=== PATIENT | female | born 1960 | race African-American/Black ===

== ENCOUNTER 2016-12-21 19:47 | Emergency (ER) | payer SELFPAY ==
[~2016-12-21] VITALS: Ht 177.8 cm; Wt 90.9 kg
[~2016-12-21 19:47] MED LIST: ALBU0.086 INH; ALBU1AER INH; ASPI81TA82 PO; CLIN75S PO; CLON0.5T PO; CYPR4TAB PO; FLUT1SPR9; FURO20 PO; IBUP800T23 PO; POTA10IN2 PO; PRED15SO7 PO; PRIN5TAB PO; ZITH250T PO
[2016-12-21 19:50] VITALS: BP 170/80; PULSE 75; RESP 16; TEMP 98.7; O2SAT 98
--- NOTE | 2016-12-21 20:55 | PD ---
HPI Chief Complaint: Medication Refill Request Time Seen by Provider: 20:47 Travel History International Travel<30 days: No Contact w/Intl Traveler<30days: No Traveled to known affect area: No History of Present Illness HPI This is a 56-year-old female who presents requesting a prescription for Klonopin. Per her efore records she was prescribed a 30 day supply of Klonopin 0.5 mg twice a day back in April 2016. She has been out of it ever since then and she presents today stating that she would like another prescription of this medication. She reports that it helped with anxiety and with sleeping issues. She does not currently have a primary care physician. She has no acute medical complaints at this time. History Past Medical Histgory Hx Cancer: No Social History Alcohol Use: No Tobacco Use: No Allergies-Medications (Allergen,Severity, Reaction): Coded Allergies: Codeine (Verified Allergy, Severe, ITCH, 12/21/16) Darvocet-N 100 (Verified Allergy, Severe, NAUSEA, 12/21/16) Penicillin (Verified Allergy, Severe, SWELLING, 12/21/16) Reported Meds & Prescriptions Reported Meds & Active Scripts Active Zithromax Z-Cole (Azithromycin) 250 Mg Tab 250 Mg PO DIRECTED 5 Days 500 MG (2 TABLETS) PO ON DAY 1, THEN 250 MG (1 TABLET) PO ON DAYS 2 TO 5. Proair Hfa (Albuterol Sulfate) 8.5 Gm Aero 2 Puff INH Q4-6H PRN * SHAKE WELL BEFORE USE * Flonase Allergy Relief (Fluticasone Propionate (Nasal)) 50 Mcg/Act Spr 2 [place] NA DAILY Orapred (Prednisolone) 15 Mg/5 Ml Syrp 20 Mg PO BID Cleocin Pediatric Granule (Clindamycin Palmitate HCl) 75 Mg/5 Ml Kristin 300 Mg PO Q6H 10 Days Potassium Chloride ER 10 meq (Potassium Chloride) 10 Meq Cap 1 Cap PO DAILY Cyproheptadine Hcl (Cyproheptadine HCl) 4 Mg Tab 4 Mg PO TID Prinivil (Lisinopril) 5 Mg Tab 5 Mg PO BID Clonazepam 0.5 Mg Tab 0.5 Mg PO BID PRN Ibuprofen 800 Mg Tab 800 Mg PO TID Lasix 20 Mg Tab (Furosemide) 20 Mg Tab 20 Mg PO BID Reported Aspir-81 (Aspirin) 81 Mg Tab 81 Mg PO DAILY Review of Systems General / Constitutional: Positive: Other (requesting refill) Psychiatric: Positive: Anxiety Physical Exam Narrative GENERAL: Well-developed well-nourished female in no acute distress SKIN: Warm and dry. CARDIOVASCULAR: Regular rate and rhythm. No murmur appreciated. RESPIRATORY: No accessory muscle use. Clear to auscultation. Breath sounds equal bilaterally. NEUROLOGICAL: Awake and alert. No obvious cranial nerve deficits. Motor grossly within normal limits. Normal speech. PSYCHIATRIC: Appropriate mood and affect; insight and judgment normal. Data Data Last Documented VS Vital Signs Date Time Temp Pulse Resp B/P Pulse Ox O2 Delivery O2 Flow Rate FiO2 12/21/16 19:50 98.7 75 16 170/80 98 MDM Medical Screen Exam Complete: Yes Emergency Medical Condition: No Narrative Course 56-year-old female presents requesting a prescription for Klonopin. She was prescribed Klonopin back in April 2016 and felt that it helped with anxiety and sleeping. She has no acute medical complaints at this time. I explained that this is a controlled substance and ideally she would have it prescribed by a primary care physician or psychiatrist that follows with her long-term given the risks of controlled medications. A medical screening exam was performed: At the time of evaluation the presenting medical condition was determined not to be of an emergent nature. The patient was given the option of receiving additional care, but declined. Patient was given options for additional community resources from which to obtain care. The Patient Has Been advised to seek medical attention for their presenting complaint. The patient has been advised to return to the ER at any time if an emergent condition develops. Primary Impression: Encounter for medical screening examination Fransico Gautam Dec 21, 2016 20:55
== END 2016-12-21 21:09 | disposition left against medical advice (07) ==
LOC: NEPK 19:47
DX: F41.9 Anxiety disorder, unspecified (principal); Z76.0 Encounter for issue of repeat prescription
CPT/HCPCS: 99281

== ENCOUNTER 2017-04-06 18:49 | Emergency (ER) | payer OTHER ==
[2017-04-06 18:51] VITALS: BP 170/76; PULSE 86; RESP 20; TEMP 99.6; O2SAT 99
[2017-04-06] MEDS ORDERED: DICL75TA PO (19:23)
[2017-04-06] MEDS ORDERED: CYCL1TAB29 PO (19:23)
[2017-04-06] MEDS ORDERED: FURO1TAB62 PO (19:26)
[2017-04-06] MEDS ORDERED: CLON0.5T PO (19:26)
[2017-04-06] MEDS ORDERED: ASPI81CH CHEW (19:26)
[2017-04-06] MEDS ORDERED: LISI-519 PO (19:26)
--- NOTE | 2017-04-06 19:27 | PD ---
HPI Chief Complaint: Injury Time Seen by Provider: 19:23 Travel History International Travel<30 days: No Contact w/Intl Traveler<30days: No Traveled to known affect area: No History of Present Illness HPI 56-year-old black female presents to emergency department with complains of pain in the posterior right leg 3 days. She states that she does not recall any injury. She does have a history of back problems in the past. She also states that she has high blood pressure and polycythemia. She denies any diabetes, heart disease or peripheral vascular disease. She does take aspirin daily. No other blood thinners. She denies any recent illness. Pain is worse with movement, bending and walking. Some relief with remaining still. Pain is moderate. Sharp and cramping at times. PFSH Past Medical History Narrative Medical Hypertension, polycythemia Heart Rhythm Problems: No Cancer: No Cardiac Catheterization: Yes Cardiomyopathy: No Cardiovascular Problems: Yes High Cholesterol: No Congestive Heart Failure: No Diabetes: No Diminished Hearing: No Endocrine: No Gastrointestinal Disorders: No Genitourinary: No Hepatitis: No Hiatal Hernia: No Heparin Induced Thrombocytopen: No Hypertension: Yes Immune Disorder: No Musculoskeletal: No Neurologic: Yes (NEUROPATHY) Psychiatric: No Reproductive: No Respiratory: Yes Immunizations Current: No Myocardial Infarction: No Seizures: No Thyroid Disease: No Ulcer: No Tetanus Vaccination: Unknown ?: Not : 3 Para: 1 Miscarriage: 2 Past Surgical History Narrative Surgical Hysterectomy AICD: No Coronary Artery Bypass Graft: No Gynecologic Surgery: Yes (hysterectomy) Hysterectomy: Yes Joint Replacement: No Pacemaker: No Other Surgery: Yes (HYSTERECTOMY) Family History Family Myocardial Infarction: No Social History Alcohol Use: No Tobacco Use: No Substance Use: No Allergies-Medications (Allergen,Severity, Reaction): Coded Allergies: Codeine (Verified Allergy, Severe, ITCH, 04/06/17) Darvocet-N 100 (Verified Allergy, Severe, NAUSEA, 04/06/17) Penicillin (Verified Allergy, Severe, SWELLING, 04/06/17) Reported Meds & Prescriptions Reported Meds & Active Scripts Active Zithromax Z-Cole (Azithromycin) 250 Mg Tab 250 Mg PO DIRECTED 5 Days 500 MG (2 TABLETS) PO ON DAY 1, THEN 250 MG (1 TABLET) PO ON DAYS 2 TO 5. Proair Hfa (Albuterol Sulfate) 8.5 Gm Aero 2 Puff INH Q4-6H PRN * SHAKE WELL BEFORE USE * Flonase Allergy Relief (Fluticasone Propionate (Nasal)) 50 Mcg/Act Spr 2 [place] NA DAILY Orapred (Prednisolone) 15 Mg/5 Ml Syrp 20 Mg PO BID Cleocin Pediatric Granule (Clindamycin Palmitate HCl) 75 Mg/5 Ml Kristin 300 Mg PO Q6H 10 Days Potassium Chloride ER 10 meq (Potassium Chloride) 10 Meq Cap 1 Cap PO DAILY Cyproheptadine Hcl (Cyproheptadine HCl) 4 Mg Tab 4 Mg PO TID Prinivil (Lisinopril) 5 Mg Tab 5 Mg PO BID Clonazepam 0.5 Mg Tab 0.5 Mg PO BID PRN Ibuprofen 800 Mg Tab 800 Mg PO TID Lasix 20 Mg Tab (Furosemide) 20 Mg Tab 20 Mg PO BID Reported Aspir-81 (Aspirin) 81 Mg Tab 81 Mg PO DAILY Review of Systems Except as stated in HPI: all other systems reviewed are Neg Physical Exam Narrative GENERAL: This is a well-nourished, well-developed patient, in no apparent distress. SKIN: No rashes, ecchymoses or lesions. Warm and dry. HEAD: Atraumatic. Normocephalic. EYES: PERRL, EOMI, no discharge or injection. No scleral icterus. EARS: Clear NOSE: Nasal turbinates appear normal. THROAT: Mucosa pink and moist. Airway patent. NECK: Trachea midline. supple, moves head freely. LUNGS: Clear to auscultation. CV: Regular in rhythm. ABDOMEN: Soft nontender. EXT: No clubbing cyanosis or edema. Patient has intact sensation with good distal pulses. There is no difference in temperature or color. Back: Patient has no central bony tenderness to palpation of the dorsal and lumbar spine. She does have some right buttocks and SI joint region tenderness. Positive straight leg raise on the right. She states that the pain does radiate from her buttocks down into the posterior thigh. There is no tenderness to palpation of the thigh itself when she standing upright. This is exacerbated as she bends forward to approximately 75. No gross spasm. She ambulates with a mildly antalgic gait. No saddle anesthesia. No focal weakness. Data Data Last Documented VS Vital Signs Date Time Temp Pulse Resp B/P Pulse Ox O2 Delivery O2 Flow Rate FiO2 04/06/17 18:51 99.6 86 20 170/76 99 Room Air MDM Medical Decision Making Medical Screen Exam Complete: Yes Emergency Medical Condition: Yes Medical Record Reviewed: Yes Differential Diagnosis MDM: High Differential diagnoses: AAA,Fracture, sprain, strain, HNP, nerve or vascular injury, epidural abscess, pilonidal cyst, pyelonephritis, UTI, nephrolithiasis, ureterolithiasis Narrative Course This is lumbar radiculopathy Diagnosis Primary Impression: Lumbar radiculopathy, acute Patient Instructions: General Instructions Additional Instructions: Rest. Ice for the next 3 days followed by heat . Flexeril and Voltaren. Follow-up with a primary care doctor in one week. Return to the ER for emergencies. Med/Other Pt SpecificInfo: Prescription(s) given Scripts Cyclobenzaprine (Flexeril)10 Mg Tab10 Mg PO TID #30 TAB Prov:Yunier Meraz MD 04/06/[address] 75 Mg Tabdr75 Mg PO BID #20 TAB Prov:Yunier Meraz MD 04/06/17 Disposition: 01 DISCHARGE HOME Condition: Stable Chris Tinoco Apr 06, 2017 19:27
== END 2017-04-06 19:59 | disposition home or self-care (01) ==
LOC: NEPK 18:49
DX: M54.16 Radiculopathy, lumbar region (principal)
CPT/HCPCS: 99284

== ENCOUNTER 2017-06-12 19:04 | Emergency (ER) | payer OTHER ==
[~2017-06-12 19:04] MED LIST changes: -ALBU1AER INH; +ASPI81CH CHEW; -ASPI81TA82 PO; -CLIN75S PO; -CYPR4TAB PO; -FLUT1SPR9; +FURO1TAB62 PO; -FURO20 PO; -IBUP800T23 PO; +LISI-519 PO; -POTA10IN2 PO; -PRED15SO7 PO; -PRIN5TAB PO; -ZITH250T PO
[2017-06-12 19:05] VITALS: BP 176/87; PULSE 78; RESP 16; TEMP 98.7; O2SAT 96
--- NOTE | 2017-06-12 19:43 | PD ---
HPI Chief Complaint: R ear clicking Time Seen by Provider: 19:39 Travel History International Travel<30 days: No Contact w/Intl Traveler<30days: No Traveled to known affect area: No History of Present Illness HPI 56-year-old female presents to emergency department for evaluation of clicking in her right ear for the last week. Patient feels as though something is in her ear. Denies pain. Denies any alterations in hearing. No drainage. No fever chills. No other symptoms report. PFSH Past Medical History Heart Rhythm Problems: No Cancer: No Cardiac Catheterization: Yes Cardiomyopathy: No Cardiovascular Problems: Yes High Cholesterol: No Congestive Heart Failure: No Diabetes: No Diminished Hearing: No Endocrine: No Gastrointestinal Disorders: No Genitourinary: No Hepatitis: No Hiatal Hernia: No Heparin Induced Thrombocytopen: No Hypertension: Yes Immune Disorder: No Musculoskeletal: No Neurologic: Yes (NEUROPATHY) Psychiatric: No Reproductive: No Respiratory: Yes Immunizations Current: No Myocardial Infarction: No Seizures: No Thyroid Disease: No Ulcer: No : 3 Para: 1 Miscarriage: 2 Past Surgical History AICD: No Coronary Artery Bypass Graft: No Gynecologic Surgery: Yes (hysterectomy) Hysterectomy: Yes Joint Replacement: No Pacemaker: No Other Surgery: Yes (HYSTERECTOMY) Social History Alcohol Use: No Tobacco Use: No Substance Use: No Allergies-Medications (Allergen,Severity, Reaction): Coded Allergies: acetaminophen (Unverified Allergy, Severe, NAUSEA, 04/20/17) codeine (Unverified Allergy, Severe, ITCH, 04/20/17) penicillin G (Unverified Allergy, Severe, SWELLING, 04/20/17) propoxyphene (Unverified Allergy, Severe, NAUSEA, 04/20/17) Reported Meds & Prescriptions Reported Meds & Active Scripts Active Cipro Hc Otic Drops (Ciprofloxacin/Hydrocortisone) 0.2-1% Susp 3 Drop RIGHT EAR BID Reported Clonazepam 0.5 Mg Tab 0.5 Mg PO BID Lasix (Furosemide) 20 Mg Tab 20 Mg PO BID Lisinopril 5 Mg Tab 5 Mg PO BID Aspirin 81 Mg Chew 81 Mg CHEW DAILY Review of Systems Except as stated in HPI: all other systems reviewed are Neg Physical Exam Narrative GENERAL: Well-nourished, well-developed female patient, in no acute distress SKIN: Focused skin assessment warm/dry. HEAD: Normocephalic. No mastoid tenderness EARS: Bilateral pinnae and external canals appear within normal limits. The remaining impaction of the right urinary unable to visualize tympanic membrane. After cerumen is removed, the tympanic membrane is within normal limits however the canal is erythematous. Bilateral tympanic membranes without erythema, dullness or perforation. EYES: No scleral icterus. No injection or drainage. NECK: Supple, trachea midline. No JVD or lymphadenopathy. CARDIOVASCULAR: Regular rate and rhythm without murmurs, gallops, or rubs. RESPIRATORY: Breath sounds equal bilaterally. No accessory muscle use. Data Data Last Documented VS Vital Signs Date Time Temp Pulse Resp B/P (MAP) Pulse Ox O2 Delivery O2 Flow Rate FiO2 06/12/17 19:05 98.7 78 16 176/87 (116) 96 Room Air MDM Medical Decision Making Medical Screen Exam Complete: Yes Emergency Medical Condition: Yes Medical Record Reviewed: Yes Differential Diagnosis Foreign body versus allergies versus otitis media versus otitis externa Narrative Course 56-year-old female presents to department for evaluation of clicking in her right ear. Patient appears without distress. Cerumen is impeding my visualization of the right tympanic membrane. After this was removed, the external canal of the right ear is erythematous. The membrane is intact and without effusion. Patient was started on Ciprodex otic drops. She has no phone care and agrees to return immediately with any acute worsening of symptoms. Procedures Procedure Narrative Verbal consent was obtained prior to procedure Normal saline is used to irrigate the right ear through a #20-gauge catheter. Light brown and dark brown wax is noted in chunks. Patient tolerated this well. Diagnosis Primary Impression: Right ear impacted cerumen Additional Impression: Otitis externa of right ear Qualified Codes: H60.501 - Unspecified acute noninfective otitis externa, right ear Referrals: Ear / Nose / Throat Specialist Primary Care Physician Patient Instructions: Cerumen Impaction (ED), General Instructions Additional Instructions: Avoid Q-tip use Follow-up with a primary care provider Seek ear nose and throat evaluation if symptoms persist Return immediately with any acute worsening of symptoms Med/Other Pt SpecificInfo: Prescription(s) given Scripts Ciprofloxacin-Hydrocortisone Otic Drops (Cipro Hc Otic Drops) 0.2-1% Susp 3 DROP RIGHT EAR BID for Infection, #1 BOTTLE 0 Refills Prov: Mirela Verdugo 06/12/17 Disposition: 01 DISCHARGE HOME Condition: Stable Mirela Verdugo Jun 12, 2017 19:43
[2017-06-12] MEDS ORDERED: CIPRHC10A RIGHT EAR (20:18)
== END 2017-06-12 20:34 | disposition home or self-care (01) ==
LOC: NEPD 19:04
DX: H61.21 Impacted cerumen, right ear (principal); H60.501 Unspecified acute noninfective otitis externa, right ear
CPT/HCPCS: 99283

== ENCOUNTER 2017-07-13 14:18 | Emergency (ER) | payer OTHER ==
[~2017-07-13 14:18] MED LIST changes: +ASPI-516 CHEW; -ASPI81CH CHEW; +CIPRHC10A RIGHT EAR
[2017-07-13 14:23] VITALS: BP 110/59; PULSE 122; RESP 22; TEMP 98.5; O2SAT 98
[2017-07-13] MEDS ORDERED: ASPIRIN 81 MG CHEW TAB CHEW ONE (14:45)
[2017-07-13] MEDS ORDERED: SODIUM CHLORIDE 0.9% FLUSH 10 ML FLUSH IVF PRN (14:45)
[2017-07-13 15:30] VITALS: O2SAT 98
--- NOTE | 2017-07-13 15:52 | PD ---
HPI Chief Complaint: Chest Pain Time Seen by Provider: 15:23 Travel History International Travel<30 days: No Contact w/Intl Traveler<30days: No Traveled to known affect area: No History of Present Illness HPI 56-year-old female with a history of anemia that presents to the ED for evaluation of chest pressure after having her first hour infusion. 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 She states that she was fine when she went to eat and when she was at the restaurant she felt a pressure on her chest which shortness of breath. She's never had this symptoms before and states that she has not had a stress test in some years and she has no history of heart disease or ACS in herself or her family. She does have a history of hypertension. She denies smoking. She denies taking any estrogen products of any recent travel. No trauma. Per patient the pain is more like a pressure and is 6 out of 10. Nothing makes it better or worse. She denies any history of heart failure. She denies any abdominal pain. No nausea or vomiting. No bowel movement or urinary issues. Per patient she has no blood in her stool. Pain does not radiate. PFSH Past Medical History Heart Rhythm Problems: No Cancer: No Cardiac Catheterization: Yes Cardiomyopathy: No Cardiovascular Problems: Yes High Cholesterol: No Congestive Heart Failure: No Diabetes: No Diminished Hearing: No Endocrine: No Gastrointestinal Disorders: No Genitourinary: No Hepatitis: No Hiatal Hernia: No Heparin Induced Thrombocytopen: No Hypertension: Yes Immune Disorder: No Musculoskeletal: No Neurologic: Yes (NEUROPATHY) Psychiatric: No Reproductive: No Respiratory: Yes Immunizations Current: No Myocardial Infarction: No Seizures: No Thyroid Disease: No Ulcer: No : 3 Para: 1 Miscarriage: 2 Past Surgical History AICD: No Coronary Artery Bypass Graft: No Gynecologic Surgery: Yes (hysterectomy) Hysterectomy: Yes Joint Replacement: No Pacemaker: No Other Surgery: Yes (HYSTERECTOMY) Social History Alcohol Use: No Tobacco Use: No Substance Use: No Allergies-Medications (Allergen,Severity, Reaction): Coded Allergies: acetaminophen (Verified Allergy, Severe, NAUSEA, 07/13/17) codeine (Verified Allergy, Severe, ITCH, 07/13/17) penicillin G (Verified Allergy, Severe, SWELLING, 07/13/17) propoxyphene (Verified Allergy, Severe, NAUSEA, 07/13/17) Reported Meds & Prescriptions Reported Meds & Active Scripts Active Reported Clonazepam 0.5 Mg Tab 0.5 Mg PO BID Lasix (Furosemide) 20 Mg Tab 20 Mg PO BID Lisinopril 5 Mg Tab 5 Mg PO BID Aspirin 81 Mg Chew 81 Mg CHEW DAILY Review of Systems Except as stated in HPI: all other systems reviewed are Neg Physical Exam Narrative GENERAL: SKIN: Warm and dry. HEAD: Atraumatic. Normocephalic. EYES: Pupils equal and round. No scleral icterus. No injection or drainage. ENT: No nasal bleeding or discharge. Mucous membranes pink and moist. Tongue is midline. No uvula deviation. NECK: Trachea midline. No JVD. CARDIOVASCULAR: Regular rate and rhythm. No murmurs, S3, S4. RESPIRATORY: No accessory muscle use. Clear to auscultation. Breath sounds equal bilaterally. GASTROINTESTINAL: Abdomen soft, non-tender, nondistended. Hepatic and splenic margins not palpable. MUSCULOSKELETAL: Extremities without clubbing, cyanosis, or edema. No obvious deformities. Full range of motion of the upper and lower extremities bilaterally. 2+ pulses bilaterally. NEUROLOGICAL: Awake and alert. No obvious cranial nerve deficits. Motor grossly within normal limits. Five out of 5 muscle strength in the arms and legs. Normal speech. PSYCHIATRIC: Appropriate mood and affect; insight and judgment normal. Data Data Last Documented VS Vital Signs Date Time Temp Pulse Resp B/P (MAP) Pulse Ox O2 Delivery O2 Flow Rate FiO2 07/13/17 18:00 80 16 117/68 (84) 99 Nasal Cannula 2.00 07/13/17 14:23 98.5 Orders Orders Basic Metabolic Panel (Bmp) (07/13/17 14:33) B-Type Natriuretic Peptide (07/13/17 14:33) Ckmb (Isoenzyme) Profile (07/13/17 14:33) Complete Blood Count With Diff (07/13/17 14:33) Magnesium (Mg) (07/13/17 14:33) Prothrombin Time / Inr (Pt) (07/13/17 14:33) Act Partial Throm Time (Ptt) (07/13/17 14:33) Troponin I (07/13/17 14:33) Lipase (07/13/17 14:33) Chest, Single Ap (07/13/17 14:33) Ecg Monitoring (07/13/17 14:33) Bilateral Bp Monitoring (07/13/17 14:33) Iv Access Insert/Monitor (07/13/17 14:33) Oximetry (07/13/17 14:33) Oxygen Administration (07/13/17 14:33) Sodium Chloride 0.9% Flush (Ns Flush) (07/13/17 14:45) Aspirin Chew (Aspirin Chew) (07/13/17 14:45) Nitroglycerin Sl (Nitrostat Sl) (07/13/17 16:00) D-Dimer (07/13/17 15:45) CKMB (07/13/17 15:45) CKMB% (07/13/17 15:45) Ct Pulmonary Angiogram (07/13/17 ) Iohexol 350 Inj (Omnipaque 350 Inj) (07/13/17 18:30) Ed Discharge Order (07/13/17 18:47) Labs Laboratory Tests Test 07/13/17 15:45 White Blood Count 6.2 TH/MM3 Red Blood Count 7.83 MIL/MM3 Hemoglobin 17.5 GM/DL Hematocrit 57.3 % Mean Corpuscular Volume 73.2 FL Mean Corpuscular Hemoglobin 22.3 PG Mean Corpuscular Hemoglobin Concent 30.5 % Red Cell Distribution Width 20.2 % Platelet Count 300 TH/MM3 Mean Platelet Volume 9.3 FL Neutrophils (%) (Auto) 86.1 % Lymphocytes (%) (Auto) 11.3 % Monocytes (%) (Auto) 1.2 % Eosinophils (%) (Auto) 0.9 % Basophils (%) (Auto) 0.5 % Neutrophils # (Auto) 5.3 TH/MM3 Lymphocytes # (Auto) 0.7 TH/MM3 Monocytes # (Auto) 0.1 TH/MM3 Eosinophils # (Auto) 0.1 TH/MM3 Basophils # (Auto) 0.0 TH/MM3 CBC Comment DIFF FINAL Differential Comment Prothrombin Time 11.5 SEC Prothromb Time International Ratio 1.0 RATIO Activated Partial Thromboplast Time 25.4 SEC D-Dimer Quantitative (PE/DVT) 8.48 MG/L FEU Blood Urea Nitrogen 15 MG/DL Creatinine 0.93 MG/DL Random Glucose 116 MG/DL Calcium Level 9.0 MG/DL Magnesium Level 1.8 MG/DL Sodium Level 139 MEQ/L Potassium Level 3.7 MEQ/L Chloride Level 101 MEQ/L Carbon Dioxide Level 29.7 MEQ/L Anion Gap 8 MEQ/L Estimat Glomerular Filtration Rate 76 ML/MIN Total Creatine Kinase 175 U/L Creatine Kinase MB 2.5 NG/ML Troponin I LESS THAN 0.02 NG/ML B-Type Natriuretic Peptide 24 PG/ML Lipase 143 U/L MDM Medical Decision Making Medical Screen Exam Complete: Yes Emergency Medical Condition: Yes Medical Record Reviewed: Yes Interpretation(s) CBC & BMP Diagram 07/13/17 15:45 Calcium Level 9.0, Magnesium Level 1.8 EKG shows sinus rhythm with no sign of acute ischemia or arrhythmia read by me and attending. Troponin and CK-MB negative. D-dimer of 8 Last Impressions Chest X-Ray 07/13/17 1433 Signed Impressions: Service Date/Time: Thursday, July 13, 2017 15:51 - CONCLUSION: No acute cardiopulmonary abnormality is identified. Efra Granger MD CT pulm shows no PE but enlarged axillary lymph nodes, radiologist recommends 3 month follow up. Differential Diagnosis ACS versus PE versus symptomatic anemia versus CHF versus a typical chest pain versus tachycardia versus chest pain Narrative Course 56-year-old female that presents to the ED for evaluation of chest pain. Patient was properly examined and was found to have signs and symptoms of unclear etiology at this time. There is some concern for PE as well as ACS as patient does have risk factors for both. She is tachycardic. Labs and imaging were ordered. She was not given aspirin as she rated an aspirin today. She was given 1 nitroglycerin. Labs and imaging showed elevated d-dimer of 8. CT pulmonary Was done was negative for PE. CT did show lymphadenopathy. Patient was told this was also need to follow-up outpatient in [address] Gautam recommends discharge. She discussed this with the patient who is in agreement with plan. Patient was told to have the lymph nodes evaluated by PCP and likely CT in 3 months for recheck. See ED worsening symptoms. Follow with PCP. Diagnosis Primary Impression: Atypical chest pain Additional Impression: Lymphadenopathy Patient Instructions: General Instructions Additional Instructions: Follow with PCP. See ED worsening symptoms. Your CT showed abnormal lymph nodes under her axilla to need to be reevaluated by her primary care doctor as well as possible have a CT to reevaluate in 3 months. Med/Other Pt SpecificInfo: Prescription(s) given Disposition: 01 DISCHARGE HOME Condition: Stable Ken Bansal Jul 13, 2017 15:52
[2017-07-13 16:00] LABS: AUTOMATED NEUTROPHIL # 5.3 TH/MM3 (1.8-7.7); BASOPHIL % 0.5 % (0.0-2.0); EOSINOPHIL # 0.1 TH/MM3 (0-0.4); EOSINOPHIL % 0.9 % (0.0-4.0); HEMATOCRIT 57.3 % (35.0-46.0); HEMO FLAGS DIFF FINAL; LYMPH % 11.3 % (9.0-44.0); LYMPHOCYTE # 0.7 TH/MM3 (1.0-4.8); MEAN CELL VOLUME 73.2 FL (80.0-100.0); MEAN CORPUSCULAR HEMOGLOBIN 22.3 PG (27.0-34.0); MEAN CORPUSCULAR HGB CONC 30.5 % (32.0-36.0); MONO % 1.2 % (0.0-8.0); NEUT % 86.1 % (16.0-70.0); PLATELET COUNT 300 TH/MM3 (150-450); RED BLOOD COUNT 7.83 MIL/MM3 (4.00-5.30); RED CELL DISTRIBUTION WIDTH 20.2 % (11.6-17.2); WHITE BLOOD COUNT 6.2 TH/MM3 (4.0-11.0)
[2017-07-13] MEDS ORDERED: NITROGLYCERIN 0.4 MG SL 25 TABS/BTL SL ONE (16:00)
[2017-07-13 16:21] LABS: ANION GAP 8 MEQ/L (5-15); BICARBONATE 29.7 MEQ/L (21.0-32.0); BLOOD UREA NITROGEN 15 MG/DL (7-18); CHLORIDE 101 MEQ/L (98-107); GLOMERULAR FILTRATION RATE 76 ML/MIN (>89); MAGNESIUM 1.8 MG/DL (1.5-2.5); POTASSIUM 3.7 MEQ/L (3.5-5.1); SODIUM (NA) 139 MEQ/L (136-145)
[2017-07-13 16:24] LABS: CREATINE KINASE 175 U/L (26-192)
[2017-07-13 16:29] LABS: APTT (PATIENT) 25.4 SEC (24.3-30.1); PROTHROMBIN TIME - PATIENT 11.5 SEC (9.8-11.6)
[2017-07-13 16:36] LABS: CKMB 2.5 NG/ML (0.5-3.6)
--- NOTE | 2017-07-13 16:39 | RADRPT ---
EXAM DATE/TIME: 07/13/2017 15:51 [facility] COMPARISON: CHEST SINGLE AP, June 03, 2016, 21:04. INDICATIONS : Chest tightness, short of breath. MEDICAL HISTORY : Cardiovascular disease. Hypertension SURGICAL HISTORY : Hysterectomy. ENCOUNTER: Initial ACUITY: 1 day PAIN SCORE: 0/10 LOCATION: Bilateral chest FINDINGS: Portable AP view of the chest demonstrates a normal-sized cardiac silhouette. No effusion, consolidat ion, or pneumothorax is visualized. The bones and soft tissues demonstrate no acute abnormality. EKG lines overlie the patient. CONCLUSION: No acute cardiopulmonary abnormality is identified. Efra Granger MD on July 13, 2017 at 16:37 Board Certified Radiologist. This report was verified electronically.
[2017-07-13 16:57] VITALS: BP_SYST 122; BP_SYST 126; BP_DIAS 72; BP_DIAS 74
[2017-07-13 18:00] VITALS: BP 117/68; PULSE 80; RESP 16; O2SAT 99
[2017-07-13] MEDS ORDERED: IOHEXOL 350 MG/ML 10 ML VIAL (for RAD DIAG) IVCONTRAST ONE (18:30)
--- NOTE | 2017-07-13 18:44 | RADRPT ---
EXAM DATE/TIME: 07/13/2017 18:20 [facility] COMPARISON: CT PULMONARY ANGIOGRAM, February 24, 2016, 11:18. INDICATIONS : Chest pain and diaphoretic. IV CONTRAST: 70 cc Omnipaque 350 (iohexol) IV RADIATION DOSE: 23.36 CTDIvol (mGy) MEDICAL HISTORY : Hypertension. Cardiovascular disease SURGICAL HISTORY : Hysterectomy. ENCOUNTER: Initial ACUITY: 1 day PAIN SCALE: 5/10 LOCATION: chest TECHNIQUE: Volumetric scanning of the chest was performed using a pulmonary embolism protocol MIP images were re constructed. Using automated exposure control and adjustment of the mA and/or kV according to patien t size, radiation dose was kept as low as reasonably achievable to obtain optimal diagnostic quality images. DICOM format image data is available electronically for review and comparison. Follow-up recommendations for detected pulmonary nodules are based at a minimum on nodule size and pa tient risk factors according to Fleischner Society Guidelines. FINDINGS: PULMONARY ARTERIES: No filling defects are seen in the pulmonary arteries through the segmental level. LUNGS: There is some atelectasis or scarring in the right base. Lung bases are otherwise clear. PLEURAE: There is no pleural thickening or pleural effusion. MEDIASTINUM: There is good visualization of the great vessels of the middle mediastinum. No evidence of mediastin al or hilar adenopathy/mass. MUSCULOSKELETAL: Within normal limits for patient age. MISCELLANEOUS: The visualized upper abdominal organs demonstrate no acute abnormality. There are some nonspecific bu t prominent lymph nodes identified in the axilla bilaterally. Largest on the left measures 1.5 and on the right 2.1 cm in diameter. These are definitely more prominent when compared to the prior exam bu t appear to be isolated CONCLUSION: 1. Atelectasis or scarring in the right base. No confluent infiltrate. 2. No pulmonary embolus. 3. Prominent lymph nodes in both axilla as above. These appear to be isolated to the axillary region and the largest lymph nodes still appear to have a fatty emeka and therefore are likely reactive. Shayne mmend followup CT scan of the chest in 3 months to ensure stability, however. Evna Jackson MD on July 13, 2017 at 18:36 Board Certified Radiologist. This report was verified electronically.
== END 2017-07-13 19:56 | disposition home or self-care (01) ==
LOC: NEPC 14:18
DX: R07.89 Other chest pain (principal); R59.1 Generalized enlarged lymph nodes; D64.9 Anemia, unspecified; I10 Essential (primary) hypertension; G62.9 Polyneuropathy, unspecified
CPT/HCPCS: 71010; 71275; 80048; 82550; 82552; 83690; 83735; 83880; 84484; 85025; 85379; 85610; 85730; 99285; Q9967

== ENCOUNTER 2018-01-24 14:52 | Observation (INO) | payer OTHER ==
[2018-01-24] VITALS (7 sets, daily range): BP systolic 143–153; BP diastolic 70–81; PULSE 82–100; RESP 16–20; TEMP 98.4–100; O2SAT 96–100
[~2018-01-24] VITALS: Ht 177.8 cm; Wt 90.0 kg
[~2018-01-24 14:52] MED LIST changes: -CIPRHC10A RIGHT EAR
[2018-01-24] MEDS ORDERED: SODIUM CHLORIDE 0.9% FLUSH 10 ML FLUSH IVF PRN (15:45)
--- NOTE | 2018-01-24 15:48 | PD ---
HPI Chief Complaint: Chest Pain Time Seen by Provider: 15:20 Travel History International Travel<30 days: No Contact w/Intl Traveler<30days: No Traveled to known affect area: No History of Present Illness HPI The patient was seen and examined in the presence of the nurse. This patient complains of chest pain. Duration 3 hours. Severity is moderate. Location is center sternum. It feels like a pressure. No history of cardiac disease. No alleviating factors. No exacerbating factors. She is not short of breath or having cough or heartburn or fever. She does have hypertension PFSH Past Medical History Heart Rhythm Problems: No Cancer: No Cardiac Catheterization: Yes Cardiomyopathy: No Cardiovascular Problems: Yes High Cholesterol: No Congestive Heart Failure: No Diabetes: No Diminished Hearing: No Endocrine: No Gastrointestinal Disorders: No Genitourinary: No Hepatitis: No Hiatal Hernia: No Heparin Induced Thrombocytopen: No Hypertension: Yes Immune Disorder: No Musculoskeletal: No Neurologic: Yes (NEUROPATHY) Psychiatric: No Reproductive: No Respiratory: Yes Immunizations Current: Yes Myocardial Infarction: No Seizures: No Thyroid Disease: No Ulcer: No Menopausal: Yes : 3 Para: 1 Miscarriage: 2 Past Surgical History AICD: No Coronary Artery Bypass Graft: No Gynecologic Surgery: Yes (hysterectomy) Hysterectomy: Yes Joint Replacement: No Pacemaker: No Other Surgery: Yes (HYSTERECTOMY) Social History Alcohol Use: No Tobacco Use: No Substance Use: No Allergies-Medications (Allergen,Severity, Reaction): Coded Allergies: acetaminophen (Verified Allergy, Severe, NAUSEA, 07/13/17) codeine (Verified Allergy, Severe, ITCH, 07/13/17) penicillin G (Verified Allergy, Severe, SWELLING, 07/13/17) propoxyphene (Verified Allergy, Severe, NAUSEA, 07/13/17) Reported Meds & Prescriptions Reported Meds & Active Scripts Active Reported Hydrochlorothiazide 25 Mg Tab 25 Mg PO DAILY Gabapentin 300 Mg Cap 300 Mg PO TID Amlodipine (Amlodipine Besylate) 5 Mg Tab 5 Mg PO DAILY Ferrous Sulfate 325 Mg (65 Mg Iron) Tablet 325 Mg PO DAILY Hydrea (Hydroxyurea) 500 Mg Cap 500 Mg PO DAILY Clonazepam 0.5 Mg Tab 0.5 Mg PO BID Lisinopril 5 Mg Tab 5 Mg PO BID Aspirin 81 Mg Chew 81 Mg CHEW DAILY Review of Systems General / Constitutional: No: Fever Eyes: No: Visual changes HENT: No: Headaches Cardiovascular: Positive: Chest Pain or Discomfort Respiratory: No: Shortness of Breath Gastrointestinal: No: Abdominal Pain Genitourinary: No: Dysuria Musculoskeletal: No: Pain Skin: No Rash Neurologic: No: Weakness Psychiatric: No: Depression Endocrine: No: Polydipsia Hematologic/Lymphatic: No: Easy Bruising Physical Exam Narrative GENERAL: Well-nourished, well-developed patient in no apparent distress. SKIN: Focused skin assessment reveals no rash and nodules. Skin is Warm and dry. HEAD: Atraumatic. Normocephalic. EYES: Pupils equal and round. No scleral icterus. No injection or drainage. ENT: No nasal bleeding or discharge. Mucous membranes pink and moist. NECK: Trachea midline. No JVD. CARDIOVASCULAR: Regular rate and rhythm. No murmur appreciated. RESPIRATORY: No accessory muscle use. Clear to auscultation. Breath sounds equal bilaterally. GASTROINTESTINAL: Abdomen soft, non-tender, nondistended. Hepatic and splenic margins not palpable. MUSCULOSKELETAL: No obvious deformities. No clubbing. No cyanosis. No edema. NEUROLOGICAL: Awake and alert. No obvious cranial nerve deficits. Motor grossly within normal limits. Normal speech. PSYCHIATRIC: Appropriate mood and affect; insight and judgment normal. Data Data Last Documented VS Vital Signs Date Time Temp Pulse Resp B/P (MAP) Pulse Ox O2 Delivery O2 Flow Rate FiO2 01/24/18 17:07 95 18 152/72 (98) 98 Room Air 01/24/18 15:05 100.0 Orders Orders Electrocardiogram (01/24/18 ) Basic Metabolic Panel (Bmp) (01/24/18 15:32) Ckmb (Isoenzyme) Profile (01/24/18 15:32) Complete Blood Count With Diff (01/24/18 15:32) Prothrombin Time / Inr (Pt) (01/24/18 15:32) Act Partial Throm Time (Ptt) (01/24/18 15:32) Troponin I (01/24/18 15:32) Chest, Single Ap (01/24/18 15:32) Ecg Monitoring (01/24/18 15:32) Iv Access Insert/Monitor (01/24/18 15:32) Oximetry (01/24/18 15:32) Sodium Chloride 0.9% Flush (Ns Flush) (01/24/18 15:45) CKMB (01/24/18 15:42) CKMB% (01/24/18 15:42) Labs Laboratory Tests Test 01/24/18 15:42 White Blood Count 6.8 TH/MM3 Red Blood Count 6.67 MIL/MM3 Hemoglobin 15.0 GM/DL Hematocrit 50.3 % Mean Corpuscular Volume 75.4 FL Mean Corpuscular Hemoglobin 22.4 PG Mean Corpuscular Hemoglobin Concent 29.8 % Red Cell Distribution Width 18.6 % Platelet Count 371 TH/MM3 Mean Platelet Volume 8.4 FL Neutrophils (%) (Auto) 93.4 % Lymphocytes (%) (Auto) 2.9 % Monocytes (%) (Auto) 1.8 % Eosinophils (%) (Auto) 1.7 % Basophils (%) (Auto) 0.2 % Neutrophils # (Auto) 6.3 TH/MM3 Lymphocytes # (Auto) 0.2 TH/MM3 Monocytes # (Auto) 0.1 TH/MM3 Eosinophils # (Auto) 0.1 TH/MM3 Basophils # (Auto) 0.0 TH/MM3 CBC Comment DIFF FINAL Differential Comment Prothrombin Time 10.7 SEC Prothromb Time International Ratio 1.1 RATIO Activated Partial Thromboplast Time 30.1 SEC Blood Urea Nitrogen 16 MG/DL Creatinine 0.92 MG/DL Random Glucose 92 MG/DL Calcium Level 8.8 MG/DL Sodium Level 139 MEQ/L Potassium Level 4.1 MEQ/L Chloride Level 103 MEQ/L Carbon Dioxide Level 30.7 MEQ/L Anion Gap 5 MEQ/L Estimat Glomerular Filtration Rate 77 ML/MIN Total Creatine Kinase 251 U/L Creatine Kinase MB 5.4 NG/ML Creatine Kinase MB % 2.2 % Troponin I LESS THAN 0.02 NG/ML MDM Medical Decision Making Medical Screen Exam Complete: Yes Emergency Medical Condition: Yes Medical Record Reviewed: Yes Differential Diagnosis Differential diagnosis includes VT, angina, pericarditis, pleurisy, GERD, anxiety. Narrative Course I have reviewed the patient's electronic medical record. Patient had an aspirin prior to arrival. EKG is normal I reviewed her chest x-ray which is normal Labs sent Cardiac enzymes are normal as are general blood counts and metabolic studies History of hypertension She will be a 23 hour observation in the chest pain center in order to rule out cardiac cause of her symptoms Diagnosis Primary Impression: Chest pain Qualified Codes: R07.9 - Chest pain, unspecified Additional Impression: HTN (hypertension) Qualified Codes: I10 - Essential (primary) hypertension Admitting Information Admitting Physician Requests: Observation Fabrizio Wasserman MD January 24, 2018 15:48
[2018-01-24] MEDS ORDERED: GABA300C5 PO (15:57)
[2018-01-24] MEDS ORDERED: HYDR25TA5 PO (15:57)
[2018-01-24] MEDS ORDERED: FERR325T18 PO (15:57)
[2018-01-24] MEDS ORDERED: AMLO5TAB2 PO (15:57)
[2018-01-24] MEDS ORDERED: HYDR500C PO (15:57)
[2018-01-24 16:03] LABS: AUTOMATED NEUTROPHIL # 6.3 TH/MM3 (1.8-7.7); BASOPHIL % 0.2 % (0.0-2.0); EOSINOPHIL # 0.1 TH/MM3 (0-0.4); EOSINOPHIL % 1.7 % (0.0-4.0); HEMATOCRIT 50.3 % (35.0-46.0); LYMPH % 2.9 % (9.0-44.0); LYMPHOCYTE # 0.2 TH/MM3 (1.0-4.8); MEAN CELL VOLUME 75.4 FL (80.0-100.0); MEAN CORPUSCULAR HEMOGLOBIN 22.4 PG (27.0-34.0); MEAN PLATELET VOLUME 8.4 FL (7.0-11.0); MONO % 1.8 % (0.0-8.0); MONOCYTE # 0.1 TH/MM3 (0-0.9); NEUT % 93.4 % (16.0-70.0); PLATELET COUNT 371 TH/MM3 (150-450); RED BLOOD COUNT 6.67 MIL/MM3 (4.00-5.30); RED CELL DISTRIBUTION WIDTH 18.6 % (11.6-17.2); WHITE BLOOD COUNT 6.8 TH/MM3 (4.0-11.0)
--- NOTE | 2018-01-24 16:04 | RADRPT ---
EXAM DATE/TIME: 01/24/2018 15:42 [facility] COMPARISON: CHEST SINGLE AP, July 13, 2017, 15:51. INDICATIONS : Chest pain MEDICAL HISTORY : Cardiovascular disease. Hypertension SURGICAL HISTORY : Hysterectomy. ENCOUNTER: Initial ACUITY: 1 day PAIN SCORE: 2/10 LOCATION: chest FINDINGS: A single view of the chest demonstrates the lungs to be symmetrically aerated without evidence of mas s, infiltrate or effusion. The cardiomediastinal contours are unremarkable. Osseous structures are intact. CONCLUSION: No acute disease. Marshal Grossman MD on January 24, 2018 at 16:02 Board Certified Radiologist. This report was verified electronically.
[2018-01-24 16:14] LABS: INTERNATIONAL NORMALIZED RATIO 1.1 RATIO; PROTHROMBIN TIME - PATIENT 10.7 SEC (9.8-11.6)
[2018-01-24 16:20] LABS: MEAN CORPUSCULAR HGB CONC 29.8 % (32.0-36.0)
[2018-01-24 16:26] LABS: BICARBONATE 30.7 MEQ/L (21.0-32.0); BLOOD UREA NITROGEN 16 MG/DL (7-18); CALCIUM 8.8 MG/DL (8.5-10.1); CHLORIDE 103 MEQ/L (98-107); CREATININE 0.92 MG/DL (0.50-1.00); GLOMERULAR FILTRATION RATE 77 ML/MIN (>89); GLUCOSE,RANDOM 92 MG/DL (74-106); SODIUM (NA) 139 MEQ/L (136-145); TROPONIN I LESS THAN 0.02 NG/ML (0.02-0.05)
[2018-01-24] MEDS ORDERED: SODIUM CHLORIDE 0.9% FLUSH 10 ML FLUSH IV FLUSH PRN (18:45)
[2018-01-24 19:55] LABS: TROPONIN I LESS THAN 0.02 NG/ML (0.02-0.05)
[2018-01-24] MEDS: SODIUM CHLORIDE 0.9% FLUSH 10 ML FLUSH IV FLUSH SCH (21:07)
[2018-01-24 23:20] LABS: TROPONIN I LESS THAN 0.02 NG/ML (0.02-0.05)
[2018-01-25 03:01] VITALS: BP 145/82; PULSE 80; RESP 16; TEMP 97.8; O2SAT 97
[2018-01-25 03:20] VITALS: PULSE 70
[2018-01-25 07:58] VITALS: BP 134/66; PULSE 76; RESP 20; TEMP 98.3; O2SAT 97
[2018-01-25 08:00] VITALS: PULSE 73
[2018-01-25] MEDS ORDERED: clonazePAM 0.5 MG TAB PO PRN (08:30)
[2018-01-25] MEDS ORDERED: HYDROXYUREA 500 MG CAP PO SCH (09:00)
[2018-01-25] MEDS ORDERED: ASPIRIN 81 MG CHEW TAB CHEW SCH (09:00)
[2018-01-25] MEDS ORDERED: amLODIPine BESYLATE 5 MG TAB PO SCH (09:00)
[2018-01-25] MEDS ORDERED: ASPIRIN 325 MG TAB PO SCH (09:00)
[2018-01-25] MEDS ORDERED: HYDROCHLOROTHIAZIDE 25 MG TAB PO SCH (09:00)
[2018-01-25] MEDS: SODIUM CHLORIDE 0.9% FLUSH 10 ML FLUSH IV FLUSH SCH (09:08)
[2018-01-25] MEDS: GABAPENTIN 300 MG CAP PO SCH ×2 (09:08→13:43)
--- NOTE | 2018-01-25 09:31 | EKG ---
Date Performed: 01/24/2018 Time Performed: 19:15:29 PTAGE: 57 years EKG: Sinus rhythm LEFT ATRIAL ENLARGEMENT MARKED LEFT AXIS DEVIATION ABNORMAL ECG Since PREVIOUS TRACING , no significant change noted PREVIOUS TRACIN01/24/2018 15.18 DOCTOR: Janneth Vo Interpretating Date/Time 01/25/2018 09:30:41
--- NOTE | 2018-01-25 09:31 | EKG ---
Date Performed: 01/24/2018 Time Performed: 15:18:47 PTAGE: 57 years EKG: Sinus rhythm LEFT ATRIAL ENLARGEMENT MARKED LEFT AXIS DEVIATION POSSIBLE LEFT VENTRICULAR HYPERTROPHY ABNORMAL EC G Since PREVIOUS TRACING , no significant change noted PREVIOUS TRACIN03/20/2016 18.27 DOCTOR: Janneth Vo Interpretating Date/Time 01/25/2018 09:30:24
--- NOTE | 2018-01-25 09:32 | EKG ---
Date Performed: 01/24/2018 Time Performed: 22:31:48 PTAGE: 57 years EKG: Sinus rhythm LEFT ATRIAL ENLARGEMENT MARKED LEFT AXIS DEVIATION ABNORMAL ECG Since PREVIOUS TRACING , no significant change noted PREVIOUS TRACIN01/24/2018 19.15 DOCTOR: Janneth Vo Interpretating Date/Time 01/25/2018 09:31:46
[2018-01-25] MEDS ORDERED: FAMOTIDINE 20 MG TAB PO ONE (10:45)
[2018-01-25] MEDS ORDERED: REGADENOSON INJ 0.4 MG/5 ML SYR ONE (11:08)
--- NOTE | 2018-01-25 11:15 | HHI.HP ---
HPI Primary Care Physician Rodney Rivera MD Chief Complaint Chest pain History of Present Illness This is a 57-year-old female that presents to ED with history of hypertension and anemia with complaint of chest discomfort. Patient states that that she developed a chest discomfort yesterday a little after having lunch. States she had a hamburger. She states it was a "discomfort." Cannot describe it any further than that. Lasted for several hours. She was little short of breath. No nausea or diaphoresis. States she has had stress test before. I reviewed her records she had a nonischemic Lexiscan in 2015, nonischemic adenosine time stress test in 2010, and a nonischemic nuclear ETT in 2006. Also upon reviewing records, a CTA obtained July 2017 revealed axillary lymphadenopathy recommended 3 month follow-up CT. This was discussed with the patient she states she has had no follow-up CT. Currently denies chest discomfort. Review of Systems General: Patient denies fevers, chills, and recent travel. HEENT: Patient denies headache, sore throat, difficulty swallowing. Cardiovascular: Has the chest discomfort as mentioned above. Denies sensation of heart beating rapidly or irregularly. No syncope. Respiratory: She was short of breath. Denies inspirational chest discomfort. Denies coughing wheezing or hemoptysis. GI: Patient denies nausea, vomiting, diarrhea, abdominal pain, bloody stools. Musculoskeletal: Patient denies joint pain or edema. Denies calf pain or edema. Neurovascular: Patient denies numbness, tingling, weakness in extremities. Denies headache. Endocrine: Denies polyuria and polydipsia. Hematologic: Denies easy bruising. Skin: Denies rash or itching. Past Family Social History Allergies: Coded Allergies: acetaminophen (Verified Allergy, Severe, NAUSEA, 07/13/17) codeine (Verified Allergy, Severe, ITCH, 07/13/17) penicillin G (Verified Allergy, Severe, SWELLING, 07/13/17) propoxyphene (Verified Allergy, Severe, NAUSEA, 07/13/17) Past Medical History Hypertension and anemia. Polycythemia. Past Surgical History Hysterectomy. Reported Medications Reported Meds & Active Scripts Active Reported Hydrochlorothiazide 25 Mg Tab 25 Mg PO DAILY Gabapentin 300 Mg Cap 300 Mg PO TID Amlodipine (Amlodipine Besylate) 5 Mg Tab 5 Mg PO DAILY Ferrous Sulfate 325 Mg (65 Mg Iron) Tablet 325 Mg PO DAILY Hydrea (Hydroxyurea) 500 Mg Cap 500 Mg PO DAILY Clonazepam 0.5 Mg Tab 0.5 Mg PO BID Lisinopril 5 Mg Tab 5 Mg PO BID Aspirin 81 Mg Chew 81 Mg CHEW DAILY Active Ordered Medications Current Medications Medications (Trade) Dose Ordered Sig/Yadira Route Start Time Stop Time Status Last Admin (NS Flush) 2 ml UNSCH PRN IV FLUSH 01/24/18 18:45 (NS Flush) 2 ml BID IV FLUSH 01/24/18 21:00 01/25/18 09:08 (Norvasc) 5 mg DAILY PO 01/25/18 09:00 01/25/18 09:08 (Aspirin Chew) 81 mg DAILY CHEW 01/25/18 09:00 01/25/18 09:08 (KlonoPIN) 0.5 mg BID PRN PO 01/25/18 08:30 (Neurontin) 300 mg TID PO 01/25/18 09:00 01/25/18 09:08 (Hydrodiuril) 25 mg DAILY PO 01/25/18 09:00 01/25/18 09:08 (Hydrea) 500 mg DAILY PO 01/25/18 09:00 Family History Denies family history of CAD. Social History Non-smoker. Denies alcohol or illicit drug use. Works as a [employer]. Physical Exam Vital Signs Vital Signs Date Time Temp Pulse Resp B/P (MAP) Pulse Ox O2 Delivery O2 Flow Rate FiO2 01/25/18 07:58 98.3 76 20 134/66 (88) 97 01/25/18 03:20 70 01/25/18 03:01 97.8 80 16 145/82 (103) 97 01/24/18 23:11 98.4 84 16 143/77 (99) 96 01/24/18 20:00 98 01/24/18 19:58 98.4 82 16 147/81 (103) 98 01/24/18 17:07 95 18 152/72 (98) 98 Room Air 01/24/18 15:52 89 18 97 Room Air 01/24/18 15:50 97 18 153/71 (98) 97 Room Air 01/24/18 15:44 18 97 Room Air 01/24/18 15:05 100.0 100 20 151/70 (97) 100 Physical Exam GENERAL: This is a well-nourished, well-developed patient, in no apparent distress. Patient speaks in clear complete sentences. Patient is pleasant. HEENT: Head is atraumatic and normocephalic. Neck is supple without lymphadenopathy and trachea is midline. No JVD or carotid bruits. CARDIOVASCULAR: Regular rate and rhythm without murmurs, gallops, or rubs. RESPIRATORY: Clear to auscultation. Breath sounds equal bilaterally. No wheezes , rales, or rhonchi. Chest wall is tender reproducing discomfort she had. No use of accessory muscles. GASTROINTESTINAL: Abdomen is nontender, nondistended. Abdomen soft. No obvious pulsatile mass or bruit. No CVA tenderness. Strong femoral pulses bilaterally. Normal bowel sounds in all quadrants. MUSCULOSKELETAL: Patient is moving upper and lower extremities freely. No calf tenderness or edema, no Homans sign. Strong pulses in upper and lower extremities. NEUROLOGICAL: Patient is alert and oriented. Cranial nerves 2-12 are grossly intact. No focal deficits and speech is clear. SKIN: No rash and turgor is normal. Laboratory Laboratory Tests Test 01/24/18 15:42 01/24/18 19:20 01/24/18 22:20 White Blood Count 6.8 Red Blood Count 6.67 Hemoglobin 15.0 Hematocrit 50.3 Mean Corpuscular Volume 75.4 Mean Corpuscular Hemoglobin 22.4 Mean Corpuscular Hemoglobin Concent 29.8 Red Cell Distribution Width 18.6 Platelet Count 371 Mean Platelet Volume 8.4 Neutrophils (%) (Auto) 93.4 Lymphocytes (%) (Auto) 2.9 Monocytes (%) (Auto) 1.8 Eosinophils (%) (Auto) 1.7 Basophils (%) (Auto) 0.2 Neutrophils # (Auto) 6.3 Lymphocytes # (Auto) 0.2 Monocytes # (Auto) 0.1 Eosinophils # (Auto) 0.1 Basophils # (Auto) 0.0 CBC Comment DIFF FINAL Differential Comment Prothrombin Time 10.7 Prothromb Time International Ratio 1.1 Activated Partial Thromboplast Time 30.1 Blood Urea Nitrogen 16 Creatinine 0.92 Random Glucose 92 Calcium Level 8.8 Sodium Level 139 Potassium Level 4.1 Chloride Level 103 Carbon Dioxide Level 30.7 Anion Gap 5 Estimat Glomerular Filtration Rate 77 Total Creatine Kinase 251 214 216 Creatine Kinase MB 5.4 3.8 3.0 Creatine Kinase MB % 2.2 1.8 1.4 Troponin I LESS THAN 0.02 LESS THAN 0.02 LESS THAN 0.02 Result Diagram: 01/24/18 1542 01/24/18 1542 Imaging Last 48 hours Impressions Chest X-Ray 01/24/18 1532 Signed Impressions: Service Date/Time: Wednesday, January 24, 2018 15:42 - CONCLUSION: No acute disease. Marshal Grossman MD Course EKGs are sinus rhythm without significant ST segment depressions or elevations. Caprini VTE Risk Assessment Caprini VTE Risk Assessment: No/Low Risk (score <= 1) Caprini Risk Assessment Model Point Value = 1 Point Value = 2 Point Value = 3 Point Value = 5 Age 41-60 Minor surgery BMI > 25 kg/m2 Swollen legs Varicose veins or History of unexplained or recurrent spontaneous Oral contraceptives or hormone replacement Sepsis (< 1 month) Serious lung disease, including pneumonia (< 1 month) Abnormal pulmonary function Acute myocardial infarction Congestive heart failure (< 1 month) History of inflammatory bowel disease Medical patient at bed rest Age 61-74 Arthroscopic surgery Major open surgery (> 45 min) Laparoscopic surgery (> 45 min) Malignancy Confined to bed (> 72 hours) Immobilizing plaster cast Central venous access Age >= 75 History of VTE Family history of VTE Factor V Leiden Prothrombin [id number] Lupus anticoagulant Anticardiolipin antibodies Elevated serum homocysteine Heparin-induced thrombocytopenia Other congenital or acquired thrombophilia Stroke (< 1 month) Elective arthroplasty Hip, pelvis, or leg fracture Acute spinal cord injury (< 1 month) Prophylaxis Regimen Total Risk Factor Score Risk Level Prophylaxis Regimen 0-1 Low Early ambulation 2 Moderate Order ONE of the following: *Sequential Compression Device (SCD) *Heparin 5000 units SQ BID 3-4 Higher Order ONE of the following medications: *Heparin 5000 units SQ TID *Enoxaparin/Lovenox 40 mg SQ daily (WT < 150 kg, CrCl > 30 mL/min) *Enoxaparin/Lovenox 30 mg SQ daily (WT < 150 kg, CrCl > 10-29 mL/min) *Enoxaparin/Lovenox 30 mg SQ BID (WT < 150 kg, CrCl > 30 mL/min) AND/OR *Sequential Compression Device (SCD) 5 or more Highest Order ONE of the following medications: *Heparin 5000 units SQ TID (Preferred with Epidurals) *Enoxaparin/Lovenox 40 mg SQ daily (WT < 150 kg, CrCl > 30 mL/min) *Enoxaparin/Lovenox 30 mg SQ daily (WT < 150 kg, CrCl > 10-29 mL/min) *Enoxaparin/Lovenox 30 mg SQ BID (WT < 150 kg, CrCl > 30 mL/min) AND *Sequential Compression Device (SCD) Assessment and Plan Assessment and Plan * Chest pain: Patient has had serial cardiac enzymes and EKGs for ruling out purposes. She was seen by Dr. Vo cardiology in the chest pain center. Patient will undergo a Lexiscan and would be discharged home if her stress test is nonischemic with instructions to follow-up with PCP. Return to ED for interval issues. Upon reviewing her records, patient had a CT revealing axillary lymphadenopathy July 2017. Three-month CT follow-up was recommended and has not recurred. I will place a call to her PCP prior to discharge to let her know the results from July so they may schedule this outpatient CT. * Hypertension: Continue medication. * Anemia: Continue medication. Patient is stable at this time. She is agreeable to this plan. I discussed with the patient's primary care physician office, spoke with nurse Sawyer regarding the patient's CT scan from July 2017. Nurse looked up the CT and has printed the report out and will give it to the physician and states that they will follow this up on her next appointment and has requested that the patient called her office to have a 2 week follow-up. This will be addressed at that visit. This was discussed with the patient. She is agreeable to this plan. Mason Mota January 25, 2018 11:15
--- NOTE | 2018-01-25 12:49 | TR ---
Date Performed: 01/25/2018 Time Performed: 11:17:36 DOCTOR: Janneth Vo DRUG LIST: CLINICAL HISTORY: ANGINA REASON FOR TEST: REASON FOR ENDING: OBSERVATION: CONCLUSION: Lexiscan stress test was performed under standard four minute protocol. Radionuclid e was injected one minute prior to ending the test. No electrocardiographic abormalities were present to suggest ischemia. Nuclear imaging and interpretation are pending. COMMENTS: No ischemia
--- NOTE | 2018-01-25 13:54 | RADRPT ---
EXAM DATE: 01/25/2018 1:34 PM EDT AGE/SEX: 57 years / Female INDICATIONS:Angina. . Mid chest pain for one day. CLINICAL DATA: This is the patient's initial encounter. Patient reports that signs and symptoms have been present for 1 day and indicates a pain score of 5/10. MEDICAL/SURGICAL HISTORY: Hypertension. Hysterectomy. COMPARISON: No prior [facility] exams available for comparison. No external comparison. DOSE: 8.6 mCi Tc 99m Myoview at rest 27.2 mCi [id number] at stress 0.4 mg Lexiscan STRESS SYMPTOMS: Shortness of breath with nausea. EJECTION FRACTION: 67 % TECHNIQUE: The patient underwent pharmacologic stress with infusion of prescribed dose. Continuous ECG tracing was monitored during stress. Gated SPECT imaging was performed after stress and conventi onal SPECT imaging was performed at rest. The examination was performed on a SPECT/CT scanner, both attenuation and non-corrected datasets were reviewed. FINDINGS: Distribution: The maximum perfused segment at stress is in the septal wall. Perfusion Study: The pattern of perfusion at stress is within normal limits. Gated Study: There are intact wall motion and wall thickening without hypokinetic or dyskinetic segm ents. The ejection fraction is calculated at 67%. RISK CATEGORY: Low (<1% Annual Motality Rate) CONCLUSION: Unremarkable myocardial perfusion study. Electronically signed by: Domingo Shaw MD 01/25/2018 1:53 PM EDT
--- NOTE | 2018-01-25 14:43 | HHI.DCPOC ---
Discharge Care Plan Diagnosis: (1) Chest pain (2) Hypertension (3) Lymph node enlargement Goals to Promote Your Health FOLLOW UP WITH YOUR PRIMARY CARE PHYSICIAN TO HAVE LYMPH NODES REEVALUATED THAT WERE SEEN ON CT DATES 07/23. * To prevent worsening of your condition and complications * To maintain your health at the optimal level Directions to Meet Your Goals Take your medications as prescribed Follow your dietary instruction Follow activity as directed Keep your appointments as scheduled Take your immunizations and boosters as scheduled If your symptoms worsen call your PCP, if no PCP go to Urgent Care Center or Emergency Room Smoking is Dangerous to Your Health. Avoid second hand smoke Call the 24-hour hour crisis hotline for domestic abuse at Mason Mota January 25, 2018 14:43
[2018-01-25 14:54] VITALS: BP 162/98; PULSE 76; RESP 20; TEMP 98.5; O2SAT 100
== END 2018-01-25 18:32 | disposition home or self-care (01) ==
LOC: NEPC 14:52 → NEDA 18:36 → NEPGCP 19:46
PROVIDERS: ADMIT Internal Medicine Cardiovascular Disease; ATTEND Internal Medicine Cardiovascular Disease
DX: R07.89 Other chest pain (principal); I10 Essential (primary) hypertension; D64.9 Anemia, unspecified; R59.0 Localized enlarged lymph nodes; R06.02 Shortness of breath; R94.31 Abnormal electrocardiogram [ECG] [EKG]; Z79.899 Other long term (current) drug therapy; Z79.82 Long term (current) use of aspirin
CPT/HCPCS: 71045; 78452; 80048; 82550; 82552; 84484; 85025; 85610; 85730; 93005; 93017; 99285; A9502; G0378; J2785

== ENCOUNTER 2018-07-08 08:22 | Observation (INO) ==
[2018-07-08] MEDS ORDERED: Aluminum/Magnesium/Simethacone Susp 30 ML UDC PO ONE (08:53)
--- NOTE | 2018-07-08 08:53 | ED ---
HPI General Chief Complaint: Chest Pain Stated Complaint: Chest Pain Complaint/Doctor Sent Time Seen by Provider: 07/08/18 08:39 History of Present Illness HPI narrative: Patient is 57-year-old female with history of chronic back pain, GERD presented to emergency room for chest pain and mild dyspnea started yesterday. Patient is a poor historian. Denies fever, cough, abdominal pain. MD complaint: Reports chest pain Related Data Home Medications Medication Instructions Recorded Confirmed amlodipine [Norvasc] 5 mg PO DAILY 04/02/18 07/08/18 aspirin [Aspir-81] 81 mg PO DAILY 04/02/18 07/08/18 cholecalciferol (vitamin D3) 50,000 unit PO WEEKLY 04/02/18 07/08/18 [Vitamin D3] clonazepam 0.5 mg PO TID PRN 04/02/18 07/08/18 gabapentin 300 mg PO TID 04/02/18 07/08/18 hydrochlorothiazide 25 mg PO DAILY 04/02/18 07/08/18 hydroxyurea 1,000 mg PO DAILY 04/02/18 07/08/18 lisinopril 40 mg PO DAILY 04/02/18 07/08/18 fluticasone 1 spray INTRANASAL DAILY 06/24/18 07/08/18 pantoprazole 20 mg PO DAILY 06/24/18 07/08/18 hydroxyurea 500 mg PO HS 07/12/18 07/12/18 Previous Rx's Medication Instructions Recorded albuterol sulfate 2 inh INHALATION Q4-6H PRN #8.5 g 04/03/18 cyclobenzaprine 10 mg PO Q8H PRN #20 tab 04/16/18 clonazepam [Klonopin] 0.5 mg PO TID PRN #30 tab 07/12/18 Allergies Allergy/AdvReac Type Severity Reaction Status Date / Time codeine Allergy Severe ITCH Verified 07/08/18 08:42 penicillin G Allergy Severe SWELLING Verified 07/08/18 08:42 propoxyphene Allergy Severe NAUSEA Verified 07/08/18 08:42 hydrocodone Allergy Itching Verified 07/08/18 08:42 nuts Allergy Swelling Uncoded 07/08/18 08:42 Review of Systems ROS: all other systems reviewed are negative Cardiovascular Reports chest pain PMFSH Social History Social History Substance History: No History of Abuse Second Hand Smoke Exposure: No Smoking Status: Never smoker How Often Do You Have a Drink Containing Alcohol: Never Recent Travel in [facility] within the Last 8 Weeks: No Recent Out of Country Travel within the Last 8 Weeks: No Immunization History Tetanus Immunization: Unsure Exam Narrative Exam Narrative: GENERAL: 57-year-old female in no apparent distress SKIN: Focused skin assessment warm/dry. HEAD: Atraumatic. Normocephalic. EYES: Pupils equal and round. No scleral icterus. No injection or drainage. ENT: No nasal bleeding or discharge. Mucous membranes pink and moist. NECK: Trachea midline. No JVD. CARDIOVASCULAR: Regular rate and rhythm. No murmur appreciated. RESPIRATORY: No accessory muscle use. Clear to auscultation. Breath sounds equal bilaterally. GASTROINTESTINAL: Abdomen soft, non-tender, nondistended. Hepatic and splenic margins not palpable. MUSCULOSKELETAL: No obvious deformities. No clubbing. No cyanosis. No edema. NEUROLOGICAL: Awake and alert. No obvious cranial nerve deficits. Motor grossly within normal limits. Normal speech. PSYCHIATRIC: Appropriate mood and affect; insight and judgment normal. Course Initial Documented Vital Signs Temperature 98.9 F 07/08/18 08:31 Pulse Rate 62 07/08/18 08:31 Respiratory Rate 20 07/08/18 08:31 Blood Pressure 147/72 H 07/08/18 08:31 Pulse Oximetry 97 07/08/18 08:31 Last Documented Vital Signs Temperature 97.7 F 07/13/18 03:55 Pulse Rate 67 07/13/18 03:55 Respiratory Rate 17 07/13/18 03:55 Blood Pressure 121/62 07/13/18 03:55 Pulse Oximetry 97 07/13/18 03:55 Medical Decision Making [facility] Narrative Medical decision making narrative: Cardiac workup ordered, EKG showing ST elevation, chest x-ray is pending, 1420: Labs noted, patient has white count elevated 16.5, platelets elevated 546. No source of infection noted. Chest pain resolved, 1st set of troponin is negative, d-dimer was positive but CTA of the chest did not reveal pulmonary embolic pathology. Patient will be placed on observation and chest pain center for further evaluation and treatment. Medical Screen Exam Complete: Yes Emergency Medical Condition: Yes Differential Diagnosis Differential Diagnosis: Chest pain rule out ACS versus costochondritis versus acid reflux. Lab Data Result diagrams: 07/10/18 08:45 07/09/18 06:51 Lab Results 07/08/18 07/08/18 07/08/18 Range/Units 08:45 08:45 08:45 WBC 16.5 H (4.0-11.0) th/mm3 RBC 4.15 (4.00-5.30) mil/mm3 Hgb 13.6 (11.6-15.3) gm/dL Hct 43.2 (35.0-46.0) % MCV 104.1 H (80.0-100.0) fL MCH 32.8 (27.0-34.0) pg MCHC 31.5 L (32.0-36.0) % RDW 18.1 H (11.6-17.2) % Plt Count 546 H (150-450) th/mm3 MPV 9.0 (7.0-11.0) fL Neut % (Auto) 93.0 H (16.0-70.0) % Lymph % (Auto) 4.4 L (9.0-44.0) % Pierce % (Auto) 1.6 (0.0-8.0) % Eos % (Auto) 0.7 (0.0-4.0) % Baso % (Auto) 0.3 (0.0-2.0) % Neut # (Auto) 15.3 H (1.8-7.7) th/mm3 Lymph # (Auto) 0.7 L (1.0-4.8) th/mm3 Pierce # (Auto) 0.3 (0.0-0.9) th/mm3 Eos # (Auto) 0.1 (0.0-0.4) th/mm3 Baso # (Auto) 0.0 (0.0-0.2) th/mm3 WBC Differential . Differential Comment Auto diff final ESR (0-30) mm/hr PT (9.8-11.6) sec INR Ratio APTT (23.4-31.7) sec D-Dimer Quant (PE/DVT) 0.86 H (0.00-0.50) mg/L FEU Puncture Site Patient Temperature O2 Saturation (90-100) % ABG pH (7.380-7.420) ABG pCO2 (38-42) mmHg ABG pO2 (61-120) mmHg ABG HCO3 (22-26) mmol/L ABG O2 Content (12.0-20.0) Vol % ABG Base Excess (-2-2) mmol/L ABG Methemoglobin (0-2) % Jet Test Hemoglobin (12.0-16.0) G/DL Carboxyhemoglobin (0-4) % Inspired O2 % Critical Value Sodium 142 (136-145) meq/L Potassium 4.2 (3.5-5.1) meq/L Chloride 105 (98-107) meq/L Carbon Dioxide 30.8 (21.0-32.0) meq/L Anion Gap 6 (5-15) meq/L BUN 24 H (7-18) mg/dL Creatinine 0.84 (0.50-1.00) mg/dL Estimated GFR 85 L (>89) mL/min Random Glucose 83 (74-106) mg/dL Calcium 8.7 (8.5-10.1) mg/dL Total Bilirubin 0.2 (0.2-1.0) mg/dL AST 22 (15-37) U/L ALT 18 (10-53) U/L Alkaline Phosphatase 99 (45-117) U/L Total Creatine Kinase (26-192) U/L Troponin I Less than 0.02 L (0.02-0.05) ng/mL C-Reactive Protein (0.00-0.30) mg/dL B-Natriuretic Peptide (0-100) pg/mL Total Protein 7.6 (6.4-8.2) g/dL Albumin 3.3 L (3.4-5.0) g/dL Urine Color (Yellw/Straw) Urine Clarity (Clear) Urine pH (5.0-8.5) Ur Specific [place] (1.002-1.035) Urine Protein (Neg-Trace) mg/dL Urine Glucose (UA) (Negative) mg/dL Urine Ketones (Negative) mg/dL Urine Occult Blood (Negative) Urine Nitrate (Negative) Urine Bilirubin (Negative) Urine Urobilinogen (Less than 2) mg/dL Ur Leukocyte Esterase (Negative) Urine RBC (0-3) /hpf Urine WBC (0-5) /hpf Ur Squamous Epith Cells (0-5) /hpf Ur Microscopic Review 07/08/18 07/08/18 07/08/18 Range/Units 08:45 08:45 13:25 WBC (4.0-11.0) th/mm3 RBC (4.00-5.30) mil/mm3 Hgb (11.6-15.3) gm/dL Hct (35.0-46.0) % MCV (80.0-100.0) fL MCH (27.0-34.0) pg MCHC (32.0-36.0) % RDW (11.6-17.2) % Plt Count (150-450) th/mm3 MPV (7.0-11.0) fL Neut % (Auto) (16.0-70.0) % Lymph % (Auto) (9.0-44.0) % Pierce % (Auto) (0.0-8.0) % Eos % (Auto) (0.0-4.0) % Baso % (Auto) (0.0-2.0) % Neut # (Auto) (1.8-7.7) th/mm3 Lymph # (Auto) (1.0-4.8) th/mm3 Pierce # (Auto) (0.0-0.9) th/mm3 Eos # (Auto) (0.0-0.4) th/mm3 Baso # (Auto) (0.0-0.2) th/mm3 WBC Differential Differential Comment ESR (0-30) mm/hr PT 10.7 (9.8-11.6) sec INR 1.1 Ratio APTT 29.3 (23.4-31.7) sec D-Dimer Quant (PE/DVT) (0.00-0.50) mg/L FEU Puncture Site Patient Temperature O2 Saturation (90-100) % ABG pH (7.380-7.420) ABG pCO2 (38-42) mmHg ABG pO2 (61-120) mmHg ABG HCO3 (22-26) mmol/L ABG O2 Content (12.0-20.0) Vol % ABG Base Excess (-2-2) mmol/L ABG Methemoglobin (0-2) % Jet Test Hemoglobin (12.0-16.0) G/DL Carboxyhemoglobin (0-4) % Inspired O2 % Critical Value Sodium (136-145) meq/L Potassium (3.5-5.1) meq/L Chloride (98-107) meq/L Carbon Dioxide (21.0-32.0) meq/L Anion Gap (5-15) meq/L BUN (7-18) mg/dL Creatinine (0.50-1.00) mg/dL Estimated GFR (>89) mL/min Random Glucose (74-106) mg/dL Calcium (8.5-10.1) mg/dL Total Bilirubin (0.2-1.0) mg/dL AST (15-37) U/L ALT (10-53) U/L Alkaline Phosphatase (45-117) U/L Total Creatine Kinase (26-192) U/L Troponin I (0.02-0.05) ng/mL C-Reactive Protein (0.00-0.30) mg/dL B-Natriuretic Peptide 79 (0-100) pg/mL Total Protein (6.4-8.2) g/dL Albumin (3.4-5.0) g/dL Urine Color Yellow (Yellw/Straw) Urine Clarity Clear (Clear) Urine pH 7.0 (5.0-8.5) Ur Specific [place] 1.024 (1.002-1.035) Urine Protein Negative (Neg-Trace) mg/dL Urine Glucose (UA) Negative (Negative) mg/dL Urine Ketones Negative (Negative) mg/dL Urine Occult Blood Negative (Negative) Urine Nitrate Negative (Negative) Urine Bilirubin Negative (Negative) Urine Urobilinogen 4 or greater (Less than 2) mg/dL Ur Leukocyte Esterase Negative (Negative) Urine RBC Less than 1 (0-3) /hpf Urine WBC 1 (0-5) /hpf Ur Squamous Epith Cells 1 (0-5) /hpf Ur Microscopic Review Not Reportable 07/08/18 07/08/18 07/08/18 Range/Units 15:08 20:10 23:30 WBC (4.0-11.0) th/mm3 RBC (4.00-5.30) mil/mm3 Hgb (11.6-15.3) gm/dL Hct (35.0-46.0) % MCV (80.0-100.0) fL MCH (27.0-34.0) pg MCHC (32.0-36.0) % RDW (11.6-17.2) % Plt Count (150-450) th/mm3 MPV (7.0-11.0) fL Neut % (Auto) (16.0-70.0) % Lymph % (Auto) (9.0-44.0) % Pierce % (Auto) (0.0-8.0) % Eos % (Auto) (0.0-4.0) % Baso % (Auto) (0.0-2.0) % Neut # (Auto) (1.8-7.7) th/mm3 Lymph # (Auto) (1.0-4.8) th/mm3 Pierce # (Auto) (0.0-0.9) th/mm3 Eos # (Auto) (0.0-0.4) th/mm3 Baso # (Auto) (0.0-0.2) th/mm3 WBC Differential Differential Comment ESR (0-30) mm/hr PT (9.8-11.6) sec INR Ratio APTT (23.4-31.7) sec D-Dimer Quant (PE/DVT) (0.00-0.50) mg/L FEU Puncture Site Patient Temperature O2 Saturation (90-100) % ABG pH (7.380-7.420) ABG pCO2 (38-42) mmHg ABG pO2 (61-120) mmHg ABG HCO3 (22-26) mmol/L ABG O2 Content (12.0-20.0) Vol % ABG Base Excess (-2-2) mmol/L ABG Methemoglobin (0-2) % Jet Test Hemoglobin (12.0-16.0) G/DL Carboxyhemoglobin (0-4) % Inspired O2 % Critical Value Sodium (136-145) meq/L Potassium (3.5-5.1) meq/L Chloride (98-107) meq/L Carbon Dioxide (21.0-32.0) meq/L Anion Gap (5-15) meq/L BUN (7-18) mg/dL Creatinine (0.50-1.00) mg/dL Estimated GFR (>89) mL/min Random Glucose (74-106) mg/dL Calcium (8.5-10.1) mg/dL Total Bilirubin (0.2-1.0) mg/dL AST (15-37) U/L ALT (10-53) U/L Alkaline Phosphatase (45-117) U/L Total Creatine Kinase 61 62 (26-192) U/L Troponin I Less than 0.02 L Less than 0.02 L Less than 0.02 L (0.02-0.05) ng/mL C-Reactive Protein (0.00-0.30) mg/dL B-Natriuretic Peptide (0-100) pg/mL Total Protein (6.4-8.2) g/dL Albumin (3.4-5.0) g/dL Urine Color (Yellw/Straw) Urine Clarity (Clear) Urine pH (5.0-8.5) Ur Specific [place] (1.002-1.035) Urine Protein (Neg-Trace) mg/dL Urine Glucose (UA) (Negative) mg/dL Urine Ketones (Negative) mg/dL Urine Occult Blood (Negative) Urine Nitrate (Negative) Urine Bilirubin (Negative) Urine Urobilinogen (Less than 2) mg/dL Ur Leukocyte Esterase (Negative) Urine RBC (0-3) /hpf Urine WBC (0-5) /hpf Ur Squamous Epith Cells (0-5) /hpf Ur Microscopic Review 07/09/18 07/09/18 07/10/18 Range/Units 06:51 06:51 08:45 WBC 15.1 H 22.8 H (4.0-11.0) th/mm3 RBC 3.75 L 4.04 (4.00-5.30) mil/mm3 Hgb 12.5 13.8 (11.6-15.3) gm/dL Hct 37.9 41.6 (35.0-46.0) % MCV 101.2 H 102.9 H (80.0-100.0) fL MCH 33.5 34.1 H (27.0-34.0) pg MCHC 33.1 33.1 (32.0-36.0) % RDW 17.9 H 17.7 H (11.6-17.2) % Plt Count 515 H 592 H (150-450) th/mm3 MPV 9.3 9.3 (7.0-11.0) fL Neut % (Auto) 93.5 H 97.7 H (16.0-70.0) % Lymph % (Auto) 4.0 L 1.7 L (9.0-44.0) % Pierce % (Auto) 1.5 0.5 (0.0-8.0) % Eos % (Auto) 0.8 0.0 (0.0-4.0) % Baso % (Auto) 0.2 0.1 (0.0-2.0) % Neut # (Auto) 14.2 H 22.3 H (1.8-7.7) th/mm3 Lymph # (Auto) 0.6 L 0.4 L (1.0-4.8) th/mm3 Pierce # (Auto) 0.2 0.1 (0.0-0.9) th/mm3 Eos # (Auto) 0.1 0.0 (0.0-0.4) th/mm3 Baso # (Auto) 0.0 0.0 (0.0-0.2) th/mm3 WBC Differential . . Differential Comment Auto diff final Auto diff final ESR (0-30) mm/hr PT (9.8-11.6) sec INR Ratio APTT (23.4-31.7) sec D-Dimer Quant (PE/DVT) (0.00-0.50) mg/L FEU Puncture Site Patient Temperature O2 Saturation (90-100) % ABG pH (7.380-7.420) ABG pCO2 (38-42) mmHg ABG pO2 (61-120) mmHg ABG HCO3 (22-26) mmol/L ABG O2 Content (12.0-20.0) Vol % ABG Base Excess (-2-2) mmol/L ABG Methemoglobin (0-2) % Jet Test Hemoglobin (12.0-16.0) G/DL Carboxyhemoglobin (0-4) % Inspired O2 % Critical Value Sodium 141 (136-145) meq/L Potassium 3.9 (3.5-5.1) meq/L Chloride 105 (98-107) meq/L Carbon Dioxide 30.1 (21.0-32.0) meq/L Anion Gap 6 (5-15) meq/L BUN 20 H (7-18) mg/dL Creatinine 0.79 (0.50-1.00) mg/dL Estimated GFR Greater than 89 (>89) mL/min Random Glucose 82 (74-106) mg/dL Calcium 8.4 L (8.5-10.1) mg/dL Total Bilirubin (0.2-1.0) mg/dL AST (15-37) U/L ALT (10-53) U/L Alkaline Phosphatase (45-117) U/L Total Creatine Kinase (26-192) U/L Troponin I (0.02-0.05) ng/mL C-Reactive Protein (0.00-0.30) mg/dL B-Natriuretic Peptide (0-100) pg/mL Total Protein (6.4-8.2) g/dL Albumin (3.4-5.0) g/dL Urine Color (Yellw/Straw) Urine Clarity (Clear) Urine pH (5.0-8.5) Ur Specific [place] (1.002-1.035) Urine Protein (Neg-Trace) mg/dL Urine Glucose (UA) (Negative) mg/dL Urine Ketones (Negative) mg/dL Urine Occult Blood (Negative) Urine Nitrate (Negative) Urine Bilirubin (Negative) Urine Urobilinogen (Less than 2) mg/dL Ur Leukocyte Esterase (Negative) Urine RBC (0-3) /hpf Urine WBC (0-5) /hpf Ur Squamous Epith Cells (0-5) /hpf Ur Microscopic Review 07/11/18 07/11/18 07/11/18 Range/Units 17:22 17:22 19:47 WBC (4.0-11.0) th/mm3 RBC (4.00-5.30) mil/mm3 Hgb (11.6-15.3) gm/dL Hct (35.0-46.0) % MCV (80.0-100.0) fL MCH (27.0-34.0) pg MCHC (32.0-36.0) % RDW (11.6-17.2) % Plt Count (150-450) th/mm3 MPV (7.0-11.0) fL Neut % (Auto) (16.0-70.0) % Lymph % (Auto) (9.0-44.0) % Pierce % (Auto) (0.0-8.0) % Eos % (Auto) (0.0-4.0) % Baso % (Auto) (0.0-2.0) % Neut # (Auto) (1.8-7.7) th/mm3 Lymph # (Auto) (1.0-4.8) th/mm3 Pierce # (Auto) (0.0-0.9) th/mm3 Eos # (Auto) (0.0-0.4) th/mm3 Baso # (Auto) (0.0-0.2) th/mm3 WBC Differential Differential Comment ESR 6 (0-30) mm/hr PT (9.8-11.6) sec INR Ratio APTT (23.4-31.7) sec D-Dimer Quant (PE/DVT) (0.00-0.50) mg/L FEU Puncture Site Left radial Patient Temperature 98.6 O2 Saturation 96 (90-100) % ABG pH 7.43 H (7.380-7.420) ABG pCO2 41 (38-42) mmHg ABG pO2 92 (61-120) mmHg ABG HCO3 27 H (22-26) mmol/L ABG O2 Content 19.4 (12.0-20.0) Vol % ABG Base Excess 2.9 H (-2-2) mmol/L ABG Methemoglobin 0.6 (0-2) % Jet Test Present Hemoglobin 14.4 (12.0-16.0) G/DL Carboxyhemoglobin 1.2 (0-4) % Inspired O2 21 % Critical Value No Sodium (136-145) meq/L Potassium (3.5-5.1) meq/L Chloride (98-107) meq/L Carbon Dioxide (21.0-32.0) meq/L Anion Gap (5-15) meq/L BUN (7-18) mg/dL Creatinine (0.50-1.00) mg/dL Estimated GFR (>89) mL/min Random Glucose (74-106) mg/dL Calcium (8.5-10.1) mg/dL Total Bilirubin (0.2-1.0) mg/dL AST (15-37) U/L ALT (10-53) U/L Alkaline Phosphatase (45-117) U/L Total Creatine Kinase (26-192) U/L Troponin I (0.02-0.05) ng/mL C-Reactive Protein 1.80 H (0.00-0.30) mg/dL B-Natriuretic Peptide (0-100) pg/mL Total Protein (6.4-8.2) g/dL Albumin (3.4-5.0) g/dL Urine Color (Yellw/Straw) Urine Clarity (Clear) Urine pH (5.0-8.5) Ur Specific [place] (1.002-1.035) Urine Protein (Neg-Trace) mg/dL Urine Glucose (UA) (Negative) mg/dL Urine Ketones (Negative) mg/dL Urine Occult Blood (Negative) Urine Nitrate (Negative) Urine Bilirubin (Negative) Urine Urobilinogen (Less than 2) mg/dL Ur Leukocyte Esterase (Negative) Urine RBC (0-3) /hpf Urine WBC (0-5) /hpf Ur Squamous Epith Cells (0-5) /hpf Ur Microscopic Review Imaging Data Radiologist's impression: Chest X-Ray 07/08/18 08:48 CONCLUSION: Negative for fracture or dislocation. Followup in 7-10 days is suggested if symptoms persist. Chest CTA 07/08/18 11:13 CONCLUSION: 1. Negative for central pulmonary emboli. 2. Stable right thyroid nodule Chest X-Ray 07/09/18 07:56 CONCLUSION: No acute cardiopulmonary disease identified. Myocardial Perfusion Scan Nuc Med 07/11/18 00:00 CONCLUSION: 1. No evidence of fixed or stress-induced reversible perfusion abnormalities. 2. Well-preserved wall motion and normal ejection fraction. ECG Data EKG Prior to Arrival: No Attestation: I personally reviewed and interpreted this ECG as follows: Prior ECG tracings: available for review Pacemaker model: Sinus bradycardia at rate 57, patient, nonspecific ST changes, left axis deviation. Discharge Plan Discharge Disposition Patient Disposition: 30 Still Patient Discharge Condition Condition: Stable Discharge Order Discharge Orders: Discharge Order (Routine); Ordered 07/12/18 Ordered By: Dinorah Freitas Discharge Details Anticipated Discharge Date: 07/12/18 Discharge Comment: Followup with Dr. Augustine 1 week after discharge from SN[facility] Followup with Dr. Nayak in 2 weeks Followup with [facility] health Diagnosis: Atypical chest pain, Leukocytosis Physicians Team ED Provider: Brayan Mccall Primary Care Provider: Rodney Augustine Attending Provider: Wilbur Bermudez Other Providers: Luis Sam ; Aneja,Geoff ; Luther,Vin B Status ED Status: Left Department Discharge Information Discharge Date/Time: 07/08/18 18:10
[2018-07-08 09:10] LABS: Baso % (Auto) 0.3 % (0.0-2.0); Eos # (Auto) 0.1 th/mm3 (0.0-0.4); Eos % (Auto) 0.7 % (0.0-4.0); Hematocrit 43.2 % (35.0-46.0); Hemoglobin 13.6 gm/dL (11.6-15.3); Lymph # (Auto) 0.7 th/mm3 (1.0-4.8); Lymph % (Auto) 4.4 % (9.0-44.0); Mean Corpuscular HGB Conc 31.5 % (32.0-36.0); Mean Corpuscular Hemoglobin 32.8 pg (27.0-34.0); Mean Corpuscular Volume 104.1 fL (80.0-100.0); Mono # (Auto) 0.3 th/mm3 (0.0-0.9); Mono % (Auto) 1.6 % (0.0-8.0); Neut # (Auto) 15.3 th/mm3 (1.8-7.7); Platelet Count 546 th/mm3 (150-450); Red Blood Count 4.15 mil/mm3 (4.00-5.30); Red Cell Distribution Width 18.1 % (11.6-17.2); White Blood Count 16.5 th/mm3 (4.0-11.0)
[2018-07-08 09:23] LABS: Activated Partial Thrombo Time 29.3 sec (23.4-31.7); INR 1.1 Ratio; Prothrombin Time 10.7 sec (9.8-11.6)
--- NOTE | 2018-07-08 09:27 | XR ---
EXAM DATE: 07/08/2018 9:24 AM EDT AGE/SEX: 57 years / Female INDICATIONS: Chest pain since last night. CLINICAL DATA: This is the patient's initial encounter. Patient reports that signs and symptoms have been present for 2 days and indicates a pain score of 6/10. MEDICAL/SURGICAL HISTORY: . Hypertension. Neuropathy. Blood disorder . COMPARISON: [facility] [place]ST 1V SINGLE AP, 05/18/2018. . FINDINGS: A single AP view of the chest demonstrates the lungs to be symmetrically aerated without evidence of mass, infiltrate or effusion. The cardiomediastinal contours are unremarkable. Osseous structures a re intact. CONCLUSION: Negative for fracture or dislocation. Followup in 7-10 days is suggested if symptoms persist. Electronically signed by: Trino Nesbitt MD 07/08/2018 9:26 AM EDT
[2018-07-08 09:32] LABS: Alanine Aminotransferase 18 U/L (10-53)
[2018-07-08 09:34] LABS: Albumin 3.3 g/dL (3.4-5.0); Anion Gap 6 meq/L (5-15); Aspartate Aminotransferase 22 U/L (15-37); Blood Urea Nitrogen 24 mg/dL (7-18); Calcium 8.7 mg/dL (8.5-10.1); Carbon Dioxide 30.8 meq/L (21.0-32.0); Chloride 105 meq/L (98-107); Glomerular Filtration Rate 85 mL/min (>89); Glucose,Random 83 mg/dL (74-106); Sodium 142 meq/L (136-145)
[2018-07-08 09:36] LABS: Alkaline Phosphatase 99 U/L (45-117); Total Protein 7.6 g/dL (6.4-8.2)
[2018-07-08 09:37] LABS: Potassium 4.2 meq/L (3.5-5.1)
--- NOTE | 2018-07-08 13:25 | CT ---
EXAM DATE: 07/08/2018 1:21 PM EDT AGE/SEX: 57 years / Female INDICATIONS: Chest pain. CLINICAL DATA: This is the patient's initial encounter. Patient reports that signs and symptoms have been present for 1 day and indicates a pain score of 8/10. MEDICAL/SURGICAL HISTORY: Hypertension. Gastroesophageal reflux disease. Hysterectomy. RADIATION DOSE: 10.22 CTDI (mGy) COMPARISON: C, CTA PULMONARY W CONTRAST W 3D, 04/02/2018. . TECHNIQUE: Volumetric scanning was performed using a multi-row detector CT scanner during bolus infu deepak of 75 ml Omnipaque 350 (iohexol) nonionic water-soluble contrast as a single exam dose. The heath a was post processed with a variety of visualization algorithms including full volume maximum intensi ty projection and sliding thin slab reformation. Using automated exposure control and adjustment of t he mA and/or kV according to patient size, radiation dose was kept as low as reasonably achievable to obtain optimal diagnostic quality images. DICOM format image data is available electronically for r eview and comparison. FINDINGS: Pulmonary Arteries: No filling defects are seen in the pulmonary arteries out to the subsegmental ve ssels. The left and right pulmonary arteries are normal in diameter. Lung: No infiltrates seen. Effusion: None. Mediastinum: No evidence of mediastinal or hilar adenopathy. Other: Stable 1.5 cm thyroid nodule CONCLUSION: 1. Negative for central pulmonary emboli. 2. Stable right thyroid nodule Electronically signed by: Trino Nesbitt MD 07/08/2018 1:24 PM EDT
[2018-07-08 14:01] LABS: Bilirubin,Urine Negative (Negative); Clarity,Urine Clear (Clear); Color,Urine Yellow (Yellw/Straw); Glucose,Urine (UA) Negative (Negative); Leukocyte Esterase,Urine Negative (Negative); Nitrite,Urine Negative (Negative); Specific Gravity,Urine 1.024 (1.002-1.035); Squamous Epithelial Cell,Urine 1 /hpf (0-5); Urobilinogen,Urine 4 or Greater mg/dL (Less than 2)
[2018-07-08] MEDS ORDERED: Bisacodyl 10 MG Supp RECTAL PRN (17:25)
[2018-07-08] MEDS ORDERED: CLONAZEPAM 0.5 MG PO PRN (17:28)
--- NOTE | 2018-07-08 17:53 | P.HPIM ---
History of Present Illness Primary Care Physician: Rodney Augustine History of Present Illness: Pt is 57 yo who presents with c/o left anterior chest pains and sob. Says she was going to pay some bills yesterday when it began. Went to urgent care and then went home. Said it awaoke her again and today urgent care sent her here. Pt says no correlation with exertion. no correlation with eating meals. denies any heartburn, n/v/abdomen pain or diarrhea. no f/c. Pt was seen here in January for cp and had nuclear stress test negative for ischemia. Since then in May had EGD showing esophagitis/ gastritis/duodenitis and dilated for mild distal esophagus stricturing. had LP in May for abnormal MRI. today had CTA chest negative for infiltrate/fluid/pulmonary embolism. ED called cp center and they refused admission and felt it was not cardiac. ED called me due to wbc 16k without explanation. PMH: PCV norris hyperlipidemia gerd gastritis/esophagitis/duodenitis chronic back pain. s/p FREDIS recently ?celiac dz per records IBS depression peripheral neuropathy] hyterectomy sh: no tobacco or etoh fh: noncontributory. Diagnosis (1) Chest pain: Medications and Allergies Allergies Allergy/AdvReac Type Severity Reaction Status Date / Time codeine Allergy Severe ITCH Verified 07/08/18 08:42 penicillin G Allergy Severe SWELLING Verified 07/08/18 08:42 propoxyphene Allergy Severe NAUSEA Verified 07/08/18 08:42 hydrocodone Allergy Itching Verified 07/08/18 08:42 nuts Allergy Swelling Uncoded 07/08/18 08:42 Home Medications Medication Instructions Recorded Confirmed Type amlodipine [Norvasc] 5 mg PO DAILY 04/02/18 07/08/18 History aspirin [Aspir-81] 81 mg PO DAILY 04/02/18 07/08/18 History cholecalciferol (vitamin D3) 50,000 unit PO WEEKLY 04/02/18 07/08/18 History [Vitamin D3] clonazepam 0.5 mg PO TID PRN 04/02/18 07/08/18 History gabapentin 300 mg PO TID 04/02/18 07/08/18 History hydrochlorothiazide 25 mg PO DAILY 04/02/18 07/08/18 History hydroxyurea 1,000 mg PO DAILY 04/02/18 07/08/18 History lisinopril 40 mg PO DAILY 04/02/18 07/08/18 History fluticasone 1 spray INTRANASAL DAILY 06/24/18 07/08/18 History pantoprazole 20 mg PO DAILY 06/24/18 07/08/18 History Active Medications: Active Medications Acetaminophen (Tylenol) 650 mg PO Q4H PRN PRN Reason: Temp > 100.4 Al Hydroxide/Mg Hydroxide (Milk Of Magnesia Liq) 30 ml PO Q12H PRN PRN Reason: Mild Constipation Albuterol (Ventolin Hfa Inh) 2 puff INH Q4H PRN PRN Reason: shortness of breath or wheezin Amlodipine Besylate (Norvasc) 5 mg PO DAILY [facility] Aspirin (Ecotrin) 81 mg PO DAILY [facility] Bisacodyl (Dulcolax Supp) 10 mg RECTAL DAILY PRN PRN Reason: SEVERE CONSITIPATION Fluticasone Propionate (Flonase Nasal Dora) 1 spray EACH NARE DAILY [facility] Gabapentin (Neurontin) 300 mg PO TID [facility] Hydrochlorothiazide (Hydrodiuril) 25 mg PO DAILY [facility] Hydroxyurea (Hydrea) 1,000 mg PO DAILY [facility] Hydroxyurea (Hydrea) 500 mg PO HS [facility] Lactulose (Lactulose Liq) 30 ml PO DAILY PRN PRN Reason: SEVERE CONSITIPATION Naproxen (Naprosyn) 500 mg PO BID [facility] Non-Formulary Medication (Clonazepam [Clonazepam]) 0.5 mg PO TID PRN PRN Reason: Anxiety Non-Formulary Medication (Lisinopril [Lisinopril]) 40 mg PO DAILY [facility] Ondansetron HCl (Zofran Inj) 4 mg IV.PUSH Q6H PRN PRN Reason: NAUSEA OR VOMITING Sennosides (Senokot) 17.2 mg PO Q12H PRN PRN Reason: Moderate Constipation Sodium Chloride (Ns Flush) 2 ml IV.FLUSH UNSCH PRN PRN Reason: FLUSH AFTER USING IV ACCESS Physical Exam Vital signs: Last Vital Signs Temp 98.9 F 07/08/18 08:31 Pulse 60 07/08/18 14:55 Resp 20 07/08/18 14:55 BP 139/67 07/08/18 14:55 Pulse Ox 99 07/08/18 14:55 Narrative: nad oriented heart reg. slight rusb murmer systolic lung ?faint base crackles abd s/nt ext no edema some pain to palpation over left chest wall..pt says some correlation with her sx's. Results Labs CBC & Chem 7: 07/08/18 08:45 07/08/18 08:45 Carlos Enrique VTE Risk Assessment Carlos Enrique VTE Risk Assessment: Moderate/High Risk (score >= 2) Carlos Enrique Risk Assessment Model: Point Value = 1 Point Value = 2 Point Value = 3 Point Value = 5 Age 41-60 Minor surgery BMI > 25 kg/m2 Swollen legs Varicose veins or History of unexplained or recurrent spontaneous Oral contraceptives or hormone replacement Sepsis (< 1 month) Serious lung disease, including pneumonia (< 1 month) Abnormal pulmonary function Acute myocardial infarction Congestive heart failure (< 1 month) History of inflammatory bowel disease Medical patient at bed rest Age 61-74 Arthroscopic surgery Major open surgery (> 45 min) Laparoscopic surgery (> 45 min) Malignancy Confined to bed (> 72 hours) Immobilizing plaster cast Central venous access Age >= 75 History of VTE Family history of VTE Factor V Leiden Prothrombin [id number] Lupus anticoagulant Anticardiolipin antibodies Elevated serum homocysteine Heparin-induced thrombocytopenia Other congenital or acquired thrombophilia Stroke (< 1 month) Elective arthroplasty Hip, pelvis, or leg fracture Acute spinal cord injury (< 1 month) Prophylaxis Regimen: Total Risk Factor Score Risk Level Prophylaxis Regimen 0-1 Low Early ambulation 2 Moderate Order ONE of the following: *Sequential Compression Device (SCD) *Heparin 5000 units SQ BID 3-4 Higher Order ONE of the following medications: *Heparin 5000 units SQ TID *Enoxaparin/Lovenox 40 mg SQ daily (WT < 150 kg, CrCl > 30 mL/min) *Enoxaparin/Lovenox 30 mg SQ daily (WT < 150 kg, CrCl > 10-29 mL/min) *Enoxaparin/Lovenox 30 mg SQ BID (WT < 150 kg, CrCl > 30 mL/min) AND/OR *Sequential Compression Device (SCD) 5 or more Highest Order ONE of the following medications: *Heparin 5000 units SQ TID (Preferred with Epidurals) *Enoxaparin/Lovenox 40 mg SQ daily (WT < 150 kg, CrCl > 30 mL/min) *Enoxaparin/Lovenox 30 mg SQ daily (WT < 150 kg, CrCl > 10-29 mL/min) *Enoxaparin/Lovenox 30 mg SQ BID (WT < 150 kg, CrCl > 30 mL/min) AND *Sequential Compression Device (SCD) Assessment and Plan Assessment (1) Chest pain: Code(s): R07.9 - Chest pain, unspecified Status: Acute Plan: 1.chest pain Pt presented with c/o cp and sob since yesterday. so far not appearing to be ACS or PE CTA negative for PE/infiltrate Pt seen by cardiology from chest pain center. Some repoducibility to ant chest pain with palpitation. s/p nuc med stress test 01/21. neg for ischemia cont tele. cont ce x 3. cont asa echo ordered. cont ppi. add naprosyn overnight to see if any improvement recheck wbc as it was 16k in ED ? reactive . reexamine right lung in AM dvt prophylaxis.
[2018-07-08] MEDS: Gabapentin 300 MG Capsule PO SCH (18:55)
--- NOTE | 2018-07-08 19:07 | ECG ---
Date Performed: 07/08/2018 Time Performed: 08:41:01 PTAGE: 57 years EKG: SINUS BRADYCARDIA WITH SINUS ARRHYTHMIA Since the previous tracing, no significant change n oted BORDERLINE ECG NO PREVIOUS TRACING DOCTOR: Man Nicole Interpretating Date/Time 07/08/2018 19:07:10
[2018-07-08] MEDS: Naproxen 500 MG Tablet PO SCH (20:14)
[2018-07-08] MEDS: Hydroxyurea 500 MG Capsule PO SCH (20:30)
[2018-07-08 21:49] LABS: Creatine Kinase 61 U/L (26-192)
[2018-07-09 00:16] LABS: Creatine Kinase 62 U/L (26-192)
--- NOTE | 2018-07-09 08:11 | P.PNIM ---
Subjective Interval history: Pt reports that she is still having chest pain this morning It hurts more to take a deep breath and makes her feel SOB. She states that the Naproxen doesn't seem to help Physical Exam Vital signs: Last Vital Signs Temp 98.6 F 07/09/18 07:31 Pulse 60 07/09/18 07:31 Resp 16 07/09/18 07:31 BP 124/69 07/09/18 07:31 Pulse Ox 98 07/09/18 07:31 Narrative: General: NAD, AAOx3 Cardiac: Regular, slight rusb systolic murmur Chest: CTA Abd: +BS, soft, ND/NT Ext: No edema Results Labs CBC & Chem 7: 07/10/18 08:45 07/09/18 06:51 Imaging Chest X-Ray 07/08/18 08:48 CONCLUSION: Negative for fracture or dislocation. Followup in 7-10 days is suggested if symptoms persist. Chest CTA 07/08/18 11:13 CONCLUSION: 1. Negative for central pulmonary emboli. 2. Stable right thyroid nodule Assessment and Plan Assessment (1) Chest pain: Code(s): R07.9 - Chest pain, unspecified Status: Acute Plan: Chest pain - Pt is a 57 y/o female who presented with c/o cp and sob x 1 day. - So far not appearing to be ACS or PE - CTA negative for PE/infiltrate - Pt seen by cardiology from chest pain center. Some reproducibility to ant chest pain wall palpitation. - She previously underwent nuc med stress test 01/21 which was neg for ischemia - Cont telemetry, pt in NSR on tele. - CE x 3 are negative. - Cont ASA - 2D echo is ordered - Repeat labs and CXR this morning are pending. - Cont PPI. - Naprosyn PRN for pain - DVT prophylaxis. Plan Discharge Planning: Patient examined. Assessment and plan formulated with Dinorah Freitas PA-C. I agree with the above. unclear the etiology of her sx's. Pt was out in hallway talking with another pt. when I entered the room she suddently stated she was more sob. some left side chest discomfort with deep inspiration. ?deep msk pain. try anti inflammatory. echo pending to evaluate pericardial sac. no evidence for ACS or PE. no fever. Progress Note: Quality VTE Deep Vein Thrombosis/Pulmonary Embolism Present on Admission: No
[2018-07-09] MEDS: amLODIPine 5 MG Tablet PO SCH (08:20)
[2018-07-09] MEDS: Naproxen 500 MG Tablet PO SCH (08:23)
[2018-07-09] MEDS: Gabapentin 300 MG Capsule PO SCH ×3 (08:23→18:42)
[2018-07-09] MEDS: hydroCHLOROthiazide 25 MG Tablet PO SCH (08:24)
--- NOTE | 2018-07-09 08:25 | XR ---
EXAM DATE: 07/09/2018 8:14 AM EDT AGE/SEX: 57 years / Female INDICATIONS: Chest pain for 3 days. Right lung base crackles. CLINICAL DATA: This is the patient's subsequent encounter. Patient reports that signs and symptoms h ave been present for 3 days and indicates a pain score of 3/10. MEDICAL/SURGICAL HISTORY: . Hypertension. Neuropathy. Blood disorder. None. COMPARISON: [facility] – [place], CHEST 1V SINGLE AP, 07/08/2018. . FINDINGS: Single AP view the chest. The lungs are clear. Cardiomediastinal silhouette within normal limits. No evidence of pleural effusion or pneumothorax. CONCLUSION: No acute cardiopulmonary disease identified. Electronically signed by: Simon Solomon MD 07/09/2018 8:23 AM EDT
[2018-07-09 08:37] LABS: Baso % (Auto) 0.2 % (0.0-2.0); Eos # (Auto) 0.1 th/mm3 (0.0-0.4); Eos % (Auto) 0.8 % (0.0-4.0); Hematocrit 37.9 % (35.0-46.0); Hemoglobin 12.5 gm/dL (11.6-15.3); Lymph # (Auto) 0.6 th/mm3 (1.0-4.8); Mean Corpuscular HGB Conc 33.1 % (32.0-36.0); Mean Corpuscular Hemoglobin 33.5 pg (27.0-34.0); Mean Corpuscular Volume 101.2 fL (80.0-100.0); Mean Platelet Volume 9.3 fL (7.0-11.0); Mono # (Auto) 0.2 th/mm3 (0.0-0.9); Mono % (Auto) 1.5 % (0.0-8.0); Neut # (Auto) 14.2 th/mm3 (1.8-7.7); Neut % (Auto) 93.5 % (16.0-70.0); Platelet Count 515 th/mm3 (150-450); Red Blood Count 3.75 mil/mm3 (4.00-5.30); Red Cell Distribution Width 17.9 % (11.6-17.2); White Blood Count 15.1 th/mm3 (4.0-11.0)
[2018-07-09 08:53] LABS: Anion Gap 6 meq/L (5-15); Blood Urea Nitrogen 20 mg/dL (7-18); Calcium 8.4 mg/dL (8.5-10.1); Carbon Dioxide 30.1 meq/L (21.0-32.0); Chloride 105 meq/L (98-107); Glomerular Filtration Rate Greater Than 89 mL/min (>89); Glucose,Random 82 mg/dL (74-106); Potassium 3.9 meq/L (3.5-5.1); Sodium 141 meq/L (136-145)
[2018-07-09] MEDS: Lisinopril 20 MG Tablet PO SCH (09:13)
[2018-07-09] MEDS: Hydroxyurea 500 MG Capsule PO SCH ×2 (09:14→20:58)
[2018-07-09] MEDS ORDERED: MethylPREDNISolone Sod Succinate Inj 125 MG/2 ML Vial IV.PUSH ONE (14:00)
--- NOTE | 2018-07-09 14:04 | ECHRPT ---
Indication: CHEST PAIN CONCLUSIONS Normal left ventricular size. Wall thickness is normal. The left ventricular systolic function is normal with an estimated ejection fraction in the range of 55-60%. Trace mitral valve regurgitation. There is trace tricuspid valve regurgitation. The estimated pulmonary arterial pressure is 39 mmHg. BP: / HR: Rhythm: MEASUREMENTS (Male / Female) Normal Values Technical Quality: 2D ECHO LV Diastolic Diameter PLAX 4.4 cm 4.2 - 5.9 / 3.9 - 5.3 cm LV Systolic Diameter PLAX 3.0 cm IVS Diastolic Thickness 1.0 cm 0.6 - 1.0 / 0.6 - 0.9 cm LVPW Diastolic Thickness 0.8 cm 0.6 - 1.0 / 0.6 - 0.9 cm LV Relative Wall Thickness 0.4 RV Internal Dim ED PLAX 2.5 cm LA Systolic Diameter LX 4.0 cm 3.0 - 4.0 / 2.7 - 3.8 cm M-MODE AV Cusp Separation MM 1.9 cm DOPPLER Mitral E Point Velocity 88.8 cm/s Mitral A Point Velocity 63.5 cm/s Mitral E to A Ratio 1.4 TR Peak Velocity 271.0 cm/s TR Peak Gradient 29.4 mmHg Right Atrial Pressure 10.0 mmHg Pulmonary Artery Systolic Pressu 39.4 mmHg Right Ventricular Systolic Press 39.4 mmHg FINDINGS LEFT VENTRICLE Normal left ventricular size. Wall thickness is normal. The left ventricular systolic function is normal with an estimated ejection fraction in the range of 55-60%. RIGHT VENTRICLE Normal right ventricular size and systolic function. LEFT ATRIUM The left atrial size is normal. RIGHT ATRIUM The right atrial size is normal. ATRIAL SEPTUM Normal atrial septal thickness without atrial level shunting by limited color doppler interrogation. AORTA The aortic root and proximal ascending aorta are normal in size on limited imaging. MITRAL VALVE Trace mitral valve regurgitation. AORTIC VALVE Trileaflet aortic valve. No aortic valve stenosis or regurgitation. TRICUSPID VALVE There is trace tricuspid valve regurgitation. The estimated pulmonary arterial pressure is 39 mmHg. PULMONARY VALVE No pulmonary valve regurgitation or stenosis. VESSELS The inferior vena cava is normal in size. PERICARDIUM No pericardial effusion. Sam Ponce MD (Electronically Signed) Final Date:09 July 2018 14:04
[2018-07-09] MEDS: MethylPREDNISolone Sod Succinate Inj 125 MG/2 ML Vial IV.PUSH SCH (20:57)
[2018-07-10] MEDS: MethylPREDNISolone Sod Succinate Inj 125 MG/2 ML Vial IV.PUSH SCH ×2 (01:18→09:56)
--- NOTE | 2018-07-10 08:01 | P.PNIM ---
Subjective Interval history: Pt reports that her chest discomfort seems to be slightly better today but she feels SOB with minimal exertion or even just with talking. She states that she is using a walker to ambulate to the bathroom but feels winded Denies any palpitations. Physical Exam Vital signs: Last Vital Signs Temp 98.1 F 07/10/18 00:00 Pulse 74 07/10/18 02:40 Resp 19 07/10/18 00:00 BP 137/68 07/10/18 00:00 Pulse Ox 98 07/10/18 00:00 Narrative: General: NAD, AAOx3 Cardiac: Regular, slight rusb systolic murmur Chest: CTA Abd: +BS, soft, ND/NT Ext: No edema Results Labs CBC & Chem 7: 07/10/18 08:45 07/09/18 06:51 Imaging Chest X-Ray 07/08/18 08:48 CONCLUSION: Negative for fracture or dislocation. Followup in 7-10 days is suggested if symptoms persist. Chest CTA 07/08/18 11:13 CONCLUSION: 1. Negative for central pulmonary emboli. 2. Stable right thyroid nodule Chest X-Ray 07/09/18 07:56 CONCLUSION: No acute cardiopulmonary disease identified. Assessment and Plan Assessment (1) Chest pain: Code(s): R07.9 - Chest pain, unspecified Status: Acute Plan: Chest pain - Pt is a 57 y/o female who presented with c/o cp and sob x 1 day. - Does not appearing to be ACS or PE - CTA negative for PE/infiltrate - Pt seen by cardiology from chest pain center. Some reproducibility to ant chest pain wall palpitation. - She previously underwent nuc med stress test 01/21 which was neg for ischemia - Cont telemetry, pt in NSR on tele. Pt had noted sinus bradycardia overnight while sleeping with HR in the mid to high 40's but otherwise no abnormalities noted. - CE x 3 are negative. - Cont ASA - 2D echo: - Normal left ventricular size. Wall thickness is normal. The left ventricular systolic function is normal with an estimated ejection fraction in the range of 55-60%. - Trace mitral valve regurgitation. - There is trace tricuspid valve regurgitation. - The estimated pulmonary arterial pressure is 39 mmHg - Repeat labs are stable - CXR (07/09/18) with no acute cardiopulmonary disease noted - Cont PPI. - Naprosyn didn't provide much relief. Pt was given a few doses of Solu-Medrol and she reports improvement in her chest discomfort but continued sensation of SOB with minimal exertion or with talking. Although nursing staff reports that the pt does not appear to be SOB during these activities and O2 sats remain stable. - Check O2 sats with ambulation this morning. - IS - Check Walk test and bedside PFTs - Pt still with reports of SOB with ambulation and chest discomfort with ambulation. - Consider Pulmonary and Cardiology consultations in AM - DVT prophylaxis with Lovenox. Attending Attestation Patient examined. Assessment and plan formulated with Dinorah Freitas PA-C. I agree with the above. still c/o of sob/cp. unclear etiology..?msk etiology. ?stress s/p abby/echo/cta/walk test. also had recent EGD limited pft for tomorrow. will ask for cards/pulm evaluation prior to dc Progress Note: Quality VTE Deep Vein Thrombosis/Pulmonary Embolism Present on Admission: No
[2018-07-10 09:47] LABS: Baso % (Auto) 0.1 % (0.0-2.0); Hematocrit 41.6 % (35.0-46.0); Hemoglobin 13.8 gm/dL (11.6-15.3); Lymph # (Auto) 0.4 th/mm3 (1.0-4.8); Lymph % (Auto) 1.7 % (9.0-44.0); Mean Corpuscular HGB Conc 33.1 % (32.0-36.0); Mean Corpuscular Hemoglobin 34.1 pg (27.0-34.0); Mean Corpuscular Volume 102.9 fL (80.0-100.0); Mean Platelet Volume 9.3 fL (7.0-11.0); Mono # (Auto) 0.1 th/mm3 (0.0-0.9); Mono % (Auto) 0.5 % (0.0-8.0); Neut # (Auto) 22.3 th/mm3 (1.8-7.7); Neut % (Auto) 97.7 % (16.0-70.0); Platelet Count 592 th/mm3 (150-450); Red Blood Count 4.04 mil/mm3 (4.00-5.30); Red Cell Distribution Width 17.7 % (11.6-17.2); White Blood Count 22.8 th/mm3 (4.0-11.0)
[2018-07-10] MEDS: hydroCHLOROthiazide 25 MG Tablet PO SCH (09:55)
[2018-07-10] MEDS: Hydroxyurea 500 MG Capsule PO SCH ×2 (09:55→20:06)
[2018-07-10] MEDS: Lisinopril 20 MG Tablet PO SCH (09:55)
[2018-07-10] MEDS: amLODIPine 5 MG Tablet PO SCH (09:56)
[2018-07-10] MEDS: Gabapentin 300 MG Capsule PO SCH ×3 (09:56→17:47)
[2018-07-10] MEDS ORDERED: clonazePAM 0.5 MG Tablet PO PRN (14:55)
[2018-07-10] MEDS: Enoxaparin Inj 30 MG/0.3 ML Syringe SQ SCH (16:46)
--- NOTE | 2018-07-11 07:42 | P.CONCA ---
History of Present Illness Primary Care Provider: Rodney Augustine History of Present Illness: 57-year-old female with past medical history of HTN, GERD, anxiety/depression who presented with weakness, chest pain, and shortness of breath. She states the chest pain started last while she was going to pay bills. She states she felt weak and then developed a few seconds of chest pain and shortness of breath. She states that she has had recurrence of chest pain shortness of breath throughout admission including currently. EKGs with no ischemic changes. Troponins 0.02 x 4. Appears the patient has had 4 negative Lexiscan's in the past 11 years including January of this year. The patient states that this is the first time she has had chest pain like this and does not recall chest pain in the past. The patient had EGD with esophagitis and esophageal stricture dilation back in May, however states that she did not have chest pain at that time. She has had occasional cough, but denies any other cold symptoms, fever, chills. Chest imaging negative for PE or acute cardiopulmonary process. Echocardiogram essentially normal. Review of Systems All other systems reviewed negative except as stated in HPI PMFSH - History History Provided By: Patient, Medical Record - Medical History Medical History: Medical History (Last Reviewed 07/08/18 @ 08:39 by Terrence Chaudhary RN) Blood disorder HTN (hypertension) History of hysterectomy Neuropathy Sleep apnea - Surgical History Surgical History: Surgical History (Last Reviewed 07/08/18 @ 08:39 by Terrence Chaudhary RN) H/O colonoscopy H/O esophagogastroduodenoscopy H/O total hysterectomy - Tobacco History Second Hand Smoke Exposure: No Smoking Status: Never smoker - Alcohol History How Often Do You Have a Drink Containing Alcohol: Never - Substance Use History Substance History: No History of Abuse - Travel History Recent Travel in the [place] Within the Last 8 Weeks: No Recent Travel Out of the Country Within the Last 8 Weeks: No - Immunization History Tetanus Immunization: Unsure Medications and Allergies Active Medications: Active Medications Acetaminophen (Tylenol) 650 mg PO Q4H PRN PRN Reason: Temp > 100.4 Al Hydroxide/Mg Hydroxide (Milk Of Magnesia Liq) 30 ml PO Q12H PRN PRN Reason: Mild Constipation Albuterol (Ventolin Hfa Inh) 2 puff INH Q4H PRN PRN Reason: shortness of breath or wheezin Last Admin: 07/09/18 22:02 Dose: 2 puff Amlodipine Besylate (Norvasc) 5 mg PO DAILY [facility] Last Admin: 07/10/18 09:56 Dose: 5 mg Aspirin (Ecotrin) 81 mg PO DAILY [facility] Last Admin: 07/10/18 09:56 Dose: 81 mg Bisacodyl (Dulcolax Supp) 10 mg RECTAL DAILY PRN PRN Reason: SEVERE CONSITIPATION Clonazepam (Klonopin) 0.5 mg PO TID PRN PRN Reason: ANXIETY Enoxaparin Sodium (Lovenox Inj) 30 mg SQ DAILY [facility] Last Admin: 07/10/18 16:46 Dose: 30 mg Fluticasone Propionate (Flonase Nasal Bryson) 1 spray EACH NARE DAILY [facility] Last Admin: 07/10/18 09:56 Dose: 1 spray Gabapentin (Neurontin) 300 mg PO TID [facility] Last Admin: 07/10/18 17:47 Dose: 300 mg Hydrochlorothiazide (Hydrodiuril) 25 mg PO DAILY [facility] Last Admin: 07/10/18 09:55 Dose: 25 mg Hydroxyurea (Hydrea) 1,000 mg PO DAILY [facility] Last Admin: 07/10/18 09:55 Dose: 1,000 mg Hydroxyurea (Hydrea) 500 mg PO HS [facility] Last Admin: 07/10/18 20:06 Dose: 500 mg Lactulose (Lactulose Liq) 30 ml PO DAILY PRN PRN Reason: SEVERE CONSITIPATION Lisinopril (Prinivil) 40 mg PO DAILY [facility] Last Admin: 07/10/18 09:55 Dose: 40 mg Ondansetron HCl (Zofran Inj) 4 mg IV.PUSH Q6H PRN PRN Reason: NAUSEA OR VOMITING Pantoprazole Sodium (Protonix) 40 mg PO BID [facility] Last Admin: 07/10/18 20:06 Dose: 40 mg Sennosides (Senokot) 17.2 mg PO Q12H PRN PRN Reason: Moderate Constipation Sodium Chloride (Ns Flush) 2 ml IV.FLUSH UNSCH PRN PRN Reason: FLUSH AFTER USING IV ACCESS Allergies Allergy/AdvReac Type Severity Reaction Status Date / Time codeine Allergy Severe ITCH Verified 07/08/18 08:42 penicillin G Allergy Severe SWELLING Verified 07/08/18 08:42 propoxyphene Allergy Severe NAUSEA Verified 07/08/18 08:42 hydrocodone Allergy Itching Verified 07/08/18 08:42 nuts Allergy Swelling Uncoded 07/08/18 08:42 Home Medications Medication Instructions Recorded Confirmed Type amlodipine [Norvasc] 5 mg PO DAILY 04/02/18 07/08/18 History aspirin [Aspir-81] 81 mg PO DAILY 04/02/18 07/08/18 History cholecalciferol (vitamin D3) 50,000 unit PO WEEKLY 04/02/18 07/08/18 History [Vitamin D3] clonazepam 0.5 mg PO TID PRN 04/02/18 07/08/18 History gabapentin 300 mg PO TID 04/02/18 07/08/18 History hydrochlorothiazide 25 mg PO DAILY 04/02/18 07/08/18 History hydroxyurea 1,000 mg PO DAILY 04/02/18 07/08/18 History lisinopril 40 mg PO DAILY 04/02/18 07/08/18 History fluticasone 1 spray INTRANASAL DAILY 06/24/18 07/08/18 History pantoprazole 20 mg PO DAILY 06/24/18 07/08/18 History Exam Vital signs: Vital Signs 07/10/18 08:16 07/10/18 08:18 07/10/18 09:05 Temperature 98.2 F Pulse Rate 68 66 Respiratory Rate 20 Blood Pressure 141/73 H Pulse Oximetry 97 98 Pulse Oximetry [Exertion on Room Air] Pulse Oximetry [Resting on Room Air] 07/10/18 12:31 07/10/18 14:09 07/10/18 16:39 Temperature 98.4 F 98.7 F Pulse Rate 60 62 Respiratory Rate 20 20 Blood Pressure 122/69 131/71 Pulse Oximetry 98 99 Pulse Oximetry [Exertion on Room Air] 99 Pulse Oximetry [Resting on Room Air] 95 07/10/18 20:00 07/11/18 00:00 07/11/18 04:00 Temperature 98.5 F 98.5 F 97.8 F Pulse Rate 68 57 L 87 Respiratory Rate 19 18 18 Blood Pressure 138/67 119/65 127/64 Pulse Oximetry 93 L 94 L 97 Pulse Oximetry [Exertion on Room Air] Pulse Oximetry [Resting on Room Air] Intake & Output 07/10/18 07/11/18 07/11/18 18:59 06:59 18:59 Intake Total 480 / 480 Balance 480 / 480 Intake: Oral 480 / 480 Other: # Voids 1 1 Date of Last Bowel Movement 07/08/18 Narrative: GENERAL: Well-developed well-nourished. In no acute distress. NECK: No carotid bruits. No JVD. CARDIOVASCULAR: Regular rate and rhythm. No murmur appreciated. RESPIRATORY: No accessory muscle use. Clear to auscultation. Breath sounds equal bilaterally. MUSCULOSKELETAL: No clubbing or cyanosis. No edema. NEUROLOGICAL: Awake and alert. Normal speech. Results 07/10/18 08:45 07/09/18 06:51 CBC 07/09/18 07/10/18 Range/Units 06:51 08:45 WBC 15.1 H 22.8 H (4.0-11.0) th/mm3 RBC 3.75 L 4.04 (4.00-5.30) mil/mm3 Hgb 12.5 13.8 (11.6-15.3) gm/dL Hct 37.9 41.6 (35.0-46.0) % Plt Count 515 H 592 H (150-450) th/mm3 Neut # (Auto) 14.2 H 22.3 H (1.8-7.7) th/mm3 Lymph # (Auto) 0.6 L 0.4 L (1.0-4.8) th/mm3 Josephine # (Auto) 0.2 0.1 (0.0-0.9) th/mm3 Eos # (Auto) 0.1 0.0 (0.0-0.4) th/mm3 Baso # (Auto) 0.0 0.0 (0.0-0.2) th/mm3 Comprehensive Metabolic Panel 07/09/18 Range/Units 06:51 Sodium 141 (136-145) meq/L Potassium 3.9 (3.5-5.1) meq/L Chloride 105 (98-107) meq/L Carbon Dioxide 30.1 (21.0-32.0) meq/L BUN 20 H (7-18) mg/dL Creatinine 0.79 (0.50-1.00) mg/dL Calcium 8.4 L (8.5-10.1) mg/dL Intake and Output 07/10/18 07/11/1807/11/18 22:59 06:59 14:59 Intake Total 480 / 480 Balance 480 / 480 Intake: Oral 480 / 480 Other: # Voids 1 Date of Last Bowel Movement 07/08/18 Assessment and Plan - Plan 57-year-old female who presented with atypical chest pain and shortness of breath Atypical chest pain: We will further assess for ischemia with Lexiscan today, n.p.o. Discussed Condition With: Patient, Dr. aSm
[2018-07-11] MEDS: Lisinopril 20 MG Tablet PO SCH (08:00)
[2018-07-11] MEDS: Gabapentin 300 MG Capsule PO SCH ×3 (08:26→17:33)
[2018-07-11] MEDS: Enoxaparin Inj 30 MG/0.3 ML Syringe SQ SCH (08:26)
[2018-07-11] MEDS: amLODIPine 5 MG Tablet PO SCH (08:26)
[2018-07-11] MEDS: hydroCHLOROthiazide 25 MG Tablet PO SCH (08:27)
[2018-07-11] MEDS: Hydroxyurea 500 MG Capsule PO SCH ×2 (08:27→20:53)
[2018-07-11] MEDS ORDERED: Regadenoson Inj 0.4 MG/5 ML Syringe IV.PUSH ONE (09:56)
--- NOTE | 2018-07-11 10:37 | P.PNIM ---
Subjective Interval history: Pts symptoms are relatively unchanged. She was seen by Cardiology this morning and is planned for Lexiscan today Physical Exam Vital signs: Last Vital Signs Temp 97.8 F 07/11/18 08:00 Pulse 52 L 07/11/18 08:00 Resp 18 07/11/18 08:00 BP 122/57 L 07/11/18 08:00 Pulse Ox 99 07/11/18 08:00 Narrative: General: NAD, AAOx3 Cardiac: Regular, slight rusb systolic murmur Chest: CTA Abd: +BS, soft, ND/NT Ext: No edema Results Labs CBC & Chem 7: 07/10/18 08:45 07/09/18 06:51 Assessment and Plan Assessment (1) Chest pain: Code(s): R07.9 - Chest pain, unspecified Status: Acute Plan: Chest pain - Pt is a 57 y/o female who presented with c/o cp and sob x 1 day. - Does not appearing to be ACS or PE - CTA negative for PE/infiltrate - Pt seen by cardiology from chest pain center. Some reproducibility to ant chest pain wall palpitation. - She previously underwent nuc med stress test 01/21 which was neg for ischemia - Cont telemetry, pt in NSR on tele. Pt had noted sinus bradycardia overnight on 07/10/18 while sleeping with HR in the mid to high 40's but otherwise no abnormalities noted. - CE x 3 are negative. - Cont ASA - 2D echo: - Normal left ventricular size. Wall thickness is normal. The left ventricular systolic function is normal with an estimated ejection fraction in the range of 55-60%. - Trace mitral valve regurgitation. - There is trace tricuspid valve regurgitation. - The estimated pulmonary arterial pressure is 39 mmHg - Repeat labs are stable - CXR (07/09/18) with no acute cardiopulmonary disease noted - Cont PPI. - Naprosyn didn't provide much relief. Pt was given a few doses of Solu-Medrol and she reports improvement in her chest discomfort but continued sensation of SOB with minimal exertion or with talking. Although nursing staff reports that the pt does not appear to be SOB during these activities and O2 sats remain stable. - O2 sats remained stable with ambulation but she had to exert great effort to walk a short distance because she felt SOB - IS - Bedside PFTs ordered - Cardiology and Pulmonary medicine were consulted to further evaluate this - Pt still with reports of SOB with ambulation and chest discomfort with ambulation. - Pt is planned for Lexiscan this morning - COnsult to Psychiatry as there is likely some psychiatric overlay to the pts symptoms. - DVT prophylaxis with Lovenox. Progress Note: Quality VTE Deep Vein Thrombosis/Pulmonary Embolism Present on Admission: No
--- NOTE | 2018-07-11 12:13 | NM ---
EXAM DATE: 07/11/2018 11:09 AM EST AGE/SEX: 57 years / Female INDICATIONS:Angina. . Substernal chest pain with dyspnea. CLINICAL DATA: This is the patient's initial encounter. Patient reports that signs and symptoms have been present for 1 day and indicates a pain score of 5/10. MEDICAL/SURGICAL HISTORY: Hypertension. Gastroesophageal reflux disease. Hysterectomy. COMPARISON: [facility], MYOCARDIAL PERF PHARM SPECT, GATED W/EF, 01/25/2018. . DOSE: 8.5 mCi Tc 99m Myoview at rest 25.4 mCi [id number] at stress 0.4 mg Lexiscan STRESS SYMPTOMS: Shortness of breath. EJECTION FRACTION: 68 % TECHNIQUE: The patient underwent pharmacologic stress with infusion of prescribed dose. Continuous ECG tracing was monitored during stress. Gated SPECT imaging was performed after stress and conventi onal SPECT imaging was performed at rest. The examination was performed on a SPECT/CT scanner, both attenuation and non-corrected datasets were reviewed. FINDINGS: Distribution: The maximum perfused segment at stress is in the anterior wall. Perfusion Study: The pattern of perfusion at stress is within normal limits. Gated Study: There are intact wall motion and wall thickening without hypokinetic or dyskinetic segm ents. The ejection fraction is calculated at 68%. RISK CATEGORY: Low (<1% Annual Motality Rate) CONCLUSION: 1. No evidence of fixed or stress-induced reversible perfusion abnormalities. 2. Well-preserved wall motion and normal ejection fraction. Electronically signed by: Marshal Grossman MD 07/11/2018 12:11 PM EST
[2018-07-11] MEDS: Acetaminophen 325 MG Tablet PO PRN (13:17)
[2018-07-11] MEDS ORDERED: ALPRAZolam 0.25 MG Tablet PO SCH (16:30)
[2018-07-11] MEDS: Escitalopram 10 MG Tablet PO SCH (17:33)
--- NOTE | 2018-07-11 21:09 | MB ---
cc: Geoff Nayak MD DATE: 07/11/2018 REQUESTING PHYSICIAN: Wilbur Bermudez MD REASON FOR CONSULTATION: Shortness of breath. HISTORY OF PRESENT ILLNESS: Ms. Hatifeld is a pleasant 57-year-old female with a history of hypertension, possible obstructive sleep apnea, history of polycythemia vera. She had a CT of the chest done, does not show any pulmonary embolism and it shows a stable right thyroid nodule. She had a myocardial perfusion scan, which shows no evidence of fixed or stress-induced reversible abnormality. Her ejection fraction is normal. PAST MEDICAL HISTORY: Significant for history of hypertension, polycythemia vera, chronic back pain, she used to have back steroid injections, history of GERD, obstructive sleep apnea, IBS, anxiety, depression, history of neuropathy, history of hysterectomy. MEDICATIONS: She is currently takin. Ventolin inhaler. 2. Norvasc 5 mg a day. 3. Ecotrin 81 mg a day. 4. Klonopin 0.5 mg 3 times a day. 5. Lovenox 30 mg a day. ALLERGIES: SHE IS ALLERGIC TO CODEINE, PENICILLIN, PROPOXYPHENE, HYDROCODONE. 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 She has no history of smoking or alcohol abuse. FAMILY HISTORY: She is a . Her that she lives alone. She had one son who at age 36 with heart problems and sleep. PHYSICAL EXAMINATION: CHEST: Equal air entry bilaterally. No rhonchi. CARDIOVASCULAR: S1, S2 normal. No gallop or murmur. ABDOMEN: Soft, nontender, nondistended. Bowel sounds are present. EXTREMITIES: No edema. CENTRAL NERVOUS SYSTEM: She is alert and oriented x3. No focal deficit. LABORATORY EVALUATION: WBC count is 22.8, hemoglobin 13.8, hematocrit 41.6, MCV 102.9, platelet count 592. Sodium 140, potassium 3.9, chloride 105, CO2 30, BUN 20, creatinine 0.79. IMPRESSION: 1. Shortness of breath, possible from her underlying obstructive restrictive lung disease. 2. History of polycythemia vera. 3. Hypertension. 4. Chronic back pain. PLAN: I will check a pulmonary function study, bronchodilator treatment. I will also check her blood gas. Her cardiac scan is negative. Continue her present medications. Further treatment will depend on the course in the hospital. Thank you, Dr. Bermudez, for this consult. MD MAIRA Pike/rw , 07:40 PM , 07:48 PM
[2018-07-11 22:49] LABS: ABG Base Excess 2.9 mmol/L (-2-2); ABG PCO2 41 mmHg (38-42); ABG PO2 92 mmHg (61-120)
[2018-07-12] MEDS: Acetaminophen 325 MG Tablet PO PRN ×3 (05:52→16:13)
[2018-07-12] MEDS: Enoxaparin Inj 30 MG/0.3 ML Syringe SQ SCH (08:42)
[2018-07-12] MEDS: Lisinopril 20 MG Tablet PO SCH (08:42)
[2018-07-12] MEDS: hydroCHLOROthiazide 25 MG Tablet PO SCH (08:42)
[2018-07-12] MEDS: Escitalopram 10 MG Tablet PO SCH ×2 (08:42→18:43)
[2018-07-12] MEDS: Gabapentin 300 MG Capsule PO SCH ×3 (08:42→18:43)
[2018-07-12] MEDS: amLODIPine 5 MG Tablet PO SCH (08:42)
[2018-07-12] MEDS: Hydroxyurea 500 MG Capsule PO SCH ×2 (08:43→22:06)
--- NOTE | 2018-07-12 11:35 | P.CONPSY ---
Provisional Diagnosis Admission Date: July 08, 2018 14:33 [place] I.: Adjustment disorder with anxiety History of Present Illness Service: ER Primary Care Provider: Rodney Augustine History of Present Illness: The patient is 57 year-old AA woman, domiciled alone in [facility], , no kids, unemployed at the moment, on SSI, with psychiatric history of anxiety, depression, no psychiatric hospitalizations, no suicide attempts, she denies the use of illegal drugs or alcohol, medical history of GERD, hypertension, IBS , who presents with c/o left anterior chest pains and sob. Says she was going to pay some bills yesterday when it began. Went to urgent care and then went home. Said it awake her again and today urgent care sent her here. Pt says no correlation with exertion. no correlation with eating meals. Denies any heartburn, n/v/abdomen pain or diarrhea. no f/c. Pt was seen here in January for cp and had nuclear stress test negative for ischemia. Since then in May had EGD showing esophagitis/gastritis/duodenitis and dilated for mild distal esophagus structuring. Had LP in May for abnormal MRI. Today had CTA chest negative for infiltrate/fluid/pulmonary embolism. ED called cp center and they refused admission and felt it was not cardiac. ED called me due to wbc 16k without explanation. Consulted to psychiatry due to anxiety. Chart reviewed. On my psychiatric evaluation the patient is calm, cooperative, initially surprised to see a psychiatrist. She says that she feels much better today even though she has a little bit of chest pain. She reports that she was very anxious initially due to the chest pain, thinking that she was about to , but she is much better now. She reports that she has been very anxious person all the time, that she was in clonazepam 0.5 mg 3 times per day for many years, but it was continue by her primary doctor months ago. She reports good sleep, good appetite, denies anhedonia, hopelessness, helplessness, worthlessness, she denies suicidal enemas ideation, and auditory hallucinations. She denies any recent traumatic or stressing episode in her life. She is logical, coherent and relevant, even that she is very talkative and circumstantial about medical problems per PPHx: Psychiatric history of anxiety and depression, no previous psychiatric hospitalizations, no previous suicide attempts, she was in clonazepam 0.5 mg twice daily months ago, but she stopped PMHx: PCV norris hyperlipidemia gerd gastritis/esophagitis/duodenitis chronic back pain. s/p FREDIS recently ?celiac dz per records IBS peripheral neuropathy] Social Hx: The patient was born and raised in [facility], she lives alone in [facility] she is , no kids, unemployed, on SSI process, her jew is [employer] Family Hx: No family psychiatric history Substance Hx: She denies the use of illegal drugs or alcohol Review of Systems All other systems reviewed negative except as stated in HPI Cardiovascular: Reports chest pain at rest Psychiatric: Reports anxiety, Reports panic attacks PMFSH - History History Provided By: Patient, Medical Record - Medical History Medical History: Medical History (Last Reviewed 07/08/18 @ 08:39 by Terrence Chaudhary RN) Blood disorder HTN (hypertension) History of hysterectomy Neuropathy Sleep apnea - Surgical History Surgical History: Surgical History (Last Reviewed 07/08/18 @ 08:39 by Terrence Chaudhary RN) H/O colonoscopy H/O esophagogastroduodenoscopy H/O total hysterectomy - Tobacco History Second Hand Smoke Exposure: No Smoking Status: Never smoker - Alcohol History How Often Do You Have a Drink Containing Alcohol: Never - Substance Use History Substance History: No History of Abuse - Travel History Recent Travel in the [place] Within the Last 8 Weeks: No Recent Travel Out of the Country Within the Last 8 Weeks: No - Immunization History Tetanus Immunization: Unsure Medications and Allergies Active Medications: Active Medications Acetaminophen (Tylenol) 650 mg PO Q4H PRN PRN Reason: Temp > 100.4 Last Admin: 07/12/18 10:03 Dose: 650 mg Al Hydroxide/Mg Hydroxide (Milk Of Lina Liq) 30 ml PO Q12H PRN PRN Reason: Mild Constipation Albuterol (Ventolin Hfa Inh) 2 puff INH Q4H PRN PRN Reason: shortness of breath or wheezin Last Admin: 07/09/18 22:02 Dose: 2 puff Amlodipine Besylate (Norvasc) 5 mg PO DAILY [facility] Last Admin: 07/12/18 08:42 Dose: 5 mg Aspirin (Ecotrin) 81 mg PO DAILY [facility] Last Admin: 07/12/18 10:03 Dose: 81 mg Bisacodyl (Dulcolax Supp) 10 mg RECTAL DAILY PRN PRN Reason: SEVERE CONSITIPATION Clonazepam (Klonopin) 0.5 mg PO TID PRN PRN Reason: ANXIETY Enoxaparin Sodium (Lovenox Inj) 30 mg SQ DAILY [facility] Last Admin: 07/12/18 08:42 Dose: 30 mg Escitalopram Oxalate (Lexapro) 10 mg PO DAILY [facility] Last Admin: 07/12/18 08:42 Dose: 10 mg Fluticasone Propionate (Flonase Nasal [place]) 1 spray EACH NARE DAILY [facility] Last Admin: 07/12/18 10:03 Dose: 1 spray Gabapentin (Neurontin) 300 mg PO TID [facility] Last Admin: 07/12/18 08:42 Dose: 300 mg Hydrochlorothiazide (Hydrodiuril) 25 mg PO DAILY [facility] Last Admin: 07/12/18 08:42 Dose: 25 mg Hydroxyurea (Hydrea) 1,000 mg PO DAILY [facility] Last Admin: 07/12/18 08:43 Dose: 1,000 mg Hydroxyurea (Hydrea) 500 mg PO HS [facility] Last Admin: 07/11/18 20:53 Dose: 500 mg Lactulose (Lactulose Liq) 30 ml PO DAILY PRN PRN Reason: SEVERE CONSITIPATION Lisinopril (Prinivil) 40 mg PO DAILY [facility] Last Admin: 07/12/18 08:42 Dose: 40 mg Ondansetron HCl (Zofran Inj) 4 mg IV.PUSH Q6H PRN PRN Reason: NAUSEA OR VOMITING Pantoprazole Sodium (Protonix) 40 mg PO BID [facility] Last Admin: 07/12/18 08:42 Dose: 40 mg Sennosides (Senokot) 17.2 mg PO Q12H PRN PRN Reason: Moderate Constipation Sodium Chloride (Ns Flush) 2 ml IV.FLUSH UNSCH PRN PRN Reason: FLUSH AFTER USING IV ACCESS Allergies Allergy/AdvReac Type Severity Reaction Status Date / Time codeine Allergy Severe ITCH Verified 07/08/18 08:42 penicillin G Allergy Severe SWELLING Verified 07/08/18 08:42 propoxyphene Allergy Severe NAUSEA Verified 07/08/18 08:42 hydrocodone Allergy Itching Verified 07/08/18 08:42 nuts Allergy Swelling Uncoded 07/08/18 08:42 Home Medications Medication Instructions Recorded Confirmed Type amlodipine [Norvasc] 5 mg PO DAILY 04/02/18 07/08/18 History aspirin [Aspir-81] 81 mg PO DAILY 04/02/18 07/08/18 History cholecalciferol (vitamin D3) 50,000 unit PO WEEKLY 04/02/18 07/08/18 History [Vitamin D3] clonazepam 0.5 mg PO TID PRN 04/02/18 07/08/18 History gabapentin 300 mg PO TID 04/02/18 07/08/18 History hydrochlorothiazide 25 mg PO DAILY 04/02/18 07/08/18 History hydroxyurea 1,000 mg PO DAILY 04/02/18 07/08/18 History lisinopril 40 mg PO DAILY 04/02/18 07/08/18 History fluticasone 1 spray INTRANASAL DAILY 06/24/18 07/08/18 History pantoprazole 20 mg PO DAILY 06/24/18 07/08/18 History Exam Vital signs: Vital Signs 07/11/18 12:00 07/11/18 16:00 07/11/18 19:46 Temperature 98.4 F 98.5 F Pulse Rate 59 L 61 67 Respiratory Rate 18 18 Blood Pressure 113/61 126/68 Pulse Oximetry 98 98 07/11/18 20:00 07/12/18 00:00 07/12/18 04:00 Temperature 98.6 F 97.7 F 98.1 F Pulse Rate 62 53 L 62 Respiratory Rate 16 16 16 Blood Pressure 116/65 111/54 L 113/68 Pulse Oximetry 95 99 98 07/12/18 08:00 Temperature 98.4 F Pulse Rate 53 L Respiratory Rate 18 Blood Pressure 123/66 Pulse Oximetry 98 Intake & Output 07/11/18 07/12/18 07/12/18 18:59 06:59 18:59 Other: # Voids 2 Date of Last Bowel Movement 07/08/18 Narrative: No tremors, no EPS, psychomotor agitation or retardation, no catatonia - Constitutional mild distress - Routine HEENT Exam Head: Present: normocephalic, atraumatic Eye: Present: EOMI, PERRL ENT: Present: mucous membranes moist Mental Status Examination Appearance: Appropriate Consciousness: Alert Orientation: x4 Motor Activity: Normal gait Speech: Unremarkable Language: Adequate Fund of Knowledge: Adequate Attention and Concentration: Adequate Memory: Unremarkable Mood: Appropriate Affect: Appropriate Thought Process & Associations: Intact Thought Content: Appropriate Hallucination Type: None Delusion Type: None Suicidal Ideation: No Suicidal Plan: No Suicidal Intention: No Homicidal Ideation: No Homicidal Plan: No Homicidal Intention: No Insight: Adequate Judgment: Adequate Assessment and Plan - Assessment (1) Adjustment disorder with anxiety Code(s): F43.22 - Adjustment disorder with anxiety Status: Acute - Plan Plan: On my psychiatric evaluation today the patient is calm, cooperative, expressing that she feels better today. The patient denies symptomatology of depression, denies anhedonia, hopelessness, helplessness, worthlessness, she denies suicidal and homicidal ideation, and auditory hallucinations. The patient does report anxiety related with medical problems, she reports history of anxiety treated with clonazepam in the past. I see that the patient has multiple ER visits and medical hospitalization with different complaints which prompted the patient in a high risk for medically induced anxiety. The patient is fully oriented x3, no attention deficit, no filtration of consciousness, even though she does have concrete thinking and decreased abstraction. She does not meet criteria for involuntary psychiatric admission. I recommend clonazepam 0.5 mg 3 times daily for anxiety. Support, motivational psychoeducation provided. Justification for Continued Inpatient Stay: No admission is indicated
--- NOTE | 2018-07-12 17:07 | P.DS ---
DS: Providers Date of admission: 07/08/18 14:33 Primary care physician: Rodney Augustine Consults: 07/10/18 22:59 Consult to Cardiology Routine Consulting Provider: Luis Sam Does the patient have a Machine Baster who follows them?: Yes Preferred Game Tester:: Luis Sam Reason for Consultation: Chest pain, SOB Notified:: Service Spoke with:: oskar Date Notified:: 07/10/18 Time Notified:: 23:26 Ordering Provider: KIAH Consult to Pulmonology Routine Consulting Provider: Geoff Nayak Preferred Nurse Anesthesia Program Director:: Geoff Nayak Reason for Consultation: Persistent SOB Notified:: Service Spoke with:: fransisco Date Notified:: 07/10/18 Time Notified:: 23:24 Ordering Provider: KIAH 07/11/18 16:25 Consult to Psychiatry Routine Consulting Provider: Vin Sloan Reason for Consultation: Anxiety with associated sob and chest pain Notified:: Office Date Notified:: 07/11/18 Time Notified:: 16:36 Ordering Provider: KIAH DS: Diagnosis Discharge Diagnosis (1) Adjustment disorder with anxiety: Status: Acute DS: Summary Atypical Chest pain SOB Anxiety - Pt is a 57 y/o female who presented with c/o cp and sob x 1 day. Does not appearing to be ACS or PE. CTA negative for PE/infiltrate. Pt seen by cardiology from chest pain center. Some reproducibility to ant chest pain wall palpitation. She previously underwent nuc med stress test 01/21 which was neg for ischemia. Pt has been in NSR on telemetry for the most part. Pt had noted sinus bradycardia overnight on 07/10 while sleeping with HR in the mid to high 40 's but otherwise no abnormalities noted. CE x 3 are negative. Pt was continued on ASA. - 2D echo: - Normal left ventricular size. Wall thickness is normal. The left ventricular systolic function is normal with an estimated ejection fraction in the range of 55-60%. - Trace mitral valve regurgitation. - There is trace tricuspid valve regurgitation. - The estimated pulmonary arterial pressure is 39 mmHg - CXR (07/09/18) with no acute cardiopulmonary disease noted - Naprosyn didn't provide much relief. Pt was given a few doses of Solu-Medrol and she reports improvement in her chest discomfort but continued sensation of SOB with minimal exertion or with talking. Although nursing staff reports that the pt does not appear to be SOB during these activities and O2 sats remain stable. O2 sats remained stable with ambulation but she had to exert great effort to walk a short distance because she felt SOB. Walk test was performed and the pt while very slow moving due to symptoms of SOB maintained her O2 sats. Cardiology and Pulmonary medicine were consulted to further evaluate the pts continued symptoms of SOB and mild chest discomfort. Pt was evaluated with Lexiscan on 07/11/18 which was negative. Pulmonary medicine evaluated and bedside PFTs ordered and performed on 07/12/18 but have not been interpreted yet. It was felt that there was likely some psychiatric overlay to the pts symptoms so Psychiatry consultation was requested. The psychiatrist did feel that there was a component of anxiety occurring and recommending continuing on the Clonazepam 0.5mg TID PRN. On the day of discharge pt is still not able to ambulate further than to the bathroom with the use of her walker and is still feeling SOB. Pt reports some minimal improvement with the Clonazepam but she reports that she doesn't necessarily feel that anxiety is contributing. Pt lives alone and does not think she will do well at home with how weak she feels. Discussed with the pt discharge to home with HHC/PT vs. SNF and she would prefer to go to SNF for a few days for strengthening before going home. Pt will need to followup with Dr. Nayak for the results of her bedside PFTs She will need to followup with Dr. Augustine 1 week after discharge from SNF. Pt will need to followup with [facility] as well. Time spent discussing smoking cessation with patient: more than 10 minutes Status at Discharge Functional status at discharge: uses cane/walker Overall status at discharge: patient is not back to baseline Time Spent with Patient Total time spent providing and/or coordinating discharge services: Quality: VTE Deep Vein Thrombosis/Pulmonary Embolism Present on Admission: No Exam Narrative Exam Narrative: General: NAD, AAOx3 Chest: CTA Cardiac: Regular Abd: +BS, soft ND/Nt Ext: No edema DS: Data Labs on day of discharge: Labs from last 24 hours 07/11/18 07/11/18 07/11/18 19:47 17:22 17:22 ESR 6 Puncture Site Left radial Patient Temperature 98.6 O2 Saturation 96 ABG pH 7.43 H ABG pCO2 41 ABG pO2 92 ABG HCO3 27 H ABG O2 Content 19.4 ABG Base Excess 2.9 H ABG Methemoglobin 0.6 Jet Test Present Hemoglobin 14.4 Carboxyhemoglobin 1.2 Inspired O2 21 Critical Value No C-Reactive Protein HUGO Screen Pending 07/11/18 17:22 ESR Puncture Site Patient Temperature O2 Saturation ABG pH ABG pCO2 ABG pO2 ABG HCO3 ABG O2 Content ABG Base Excess ABG Methemoglobin Jet Test Hemoglobin Carboxyhemoglobin Inspired O2 Critical Value C-Reactive Protein 1.80 H HUGO Screen Impressions Chest X-Ray 07/08/18 08:48 CONCLUSION: Negative for fracture or dislocation. Followup in 7-10 days is suggested if symptoms persist. Chest CTA 07/08/18 11:13 CONCLUSION: 1. Negative for central pulmonary emboli. 2. Stable right thyroid nodule Chest X-Ray 07/09/18 07:56 CONCLUSION: No acute cardiopulmonary disease identified. Myocardial Perfusion Scan Nuc Med 07/11/18 00:00 CONCLUSION: 1. No evidence of fixed or stress-induced reversible perfusion abnormalities. 2. Well-preserved wall motion and normal ejection fraction. Discharge Plan Discharge Disposition Patient Disposition: Discharge to SNF Discharge Condition Condition: Stable Discharge Order Discharge Orders: Discharge Order (Routine); Ordered 07/12/18 Ordered By: Dinorah Freitas Discharge Details Anticipated Discharge Date: 07/12/18 Discharge Comment: Followup with Dr. Augustine 1 week after discharge from SNF Followup with Dr. Nayak in 2 weeks Followup with [facility] Mental health Physicians Team ED Provider: Brayan Mccall Primary Care Provider: Rodney Augustine Attending Provider: Wilbur Bermudez Other Providers: Luis Sam ; Geoff Nayak ; Vin Sloan Rxs /Orders / Referrals /Forms Prescriptions: New clonazepam [Klonopin] 0.5 mg Tablet 0.5 mg PO TID PRN (Reason: Anxiety) Qty: 30 RF: 0 escitalopram oxalate 10 mg Tablet 10 mg PO DAILY Qty: 30 RF: 0 Continue hydroxyurea 500 mg Capsule 500 mg PO HS RF: 0 hydroxyurea 500 mg Capsule 1,000 mg PO DAILY RF: 0 amlodipine [Norvasc] 5 mg Tablet 5 mg PO DAILY RF: 0 aspirin [Aspir-81] 81 mg Tablet,Delayed Release (Dr/Ec) 81 mg PO DAILY RF: 0 gabapentin 300 mg Capsule 300 mg PO TID RF: 0 hydrochlorothiazide 25 mg Tablet 25 mg PO DAILY RF: 0 lisinopril 40 mg Tablet 40 mg PO DAILY RF: 0 cholecalciferol (vitamin D3) [Vitamin D3] 5,000 unit Tablet 50,000 unit PO WEEKLY RF: 0 albuterol sulfate 90 mcg/actuation HFA aerosol inhaler 2 inh INHALATION Q4-6H PRN (Reason: shortness of breath or wheezing) Qty: 8.5 RF: 0 pantoprazole 20 mg Tablet,Delayed Release (Dr/Ec) 20 mg PO DAILY RF: 0 fluticasone 50 mcg/actuation [place],Suspension 1 spray INTRANASAL DAILY RF: 0 Discontinued clonazepam 0.5 mg Tablet,Disintegrating 0.5 mg PO TID PRN (Reason: Anxiety) RF: 0 cyclobenzaprine 10 mg tablet 10 mg PO Q8H PRN (Reason: muscle spasm) Qty: 20 RF: 0 Referrals: Geoff Nayak MD [Physician] - See Instructions (Followup with Dr. Nayak in 2 weeks, call for that appt. ) Rodney Augustine MD [Primary Care Provider] - See Instructions ( Followup with Dr. Augustine in 1 week) Discharge Instructions Patient Printed Instructions: Chest Pain (ED) Status ED Status: Left Department
--- NOTE | 2018-07-12 20:05 | P.PNPL ---
Subjective Interval history: 57 YOAA female with PCV, sob PFT suggestive of mod restrictive lung dis No SOB On RA Physical Exam Vital signs: Vital Signs 07/12/18 00:00 07/12/18 04:00 07/12/18 08:00 Temperature 97.7 F 98.1 F 98.4 F Pulse Rate 53 L 62 53 L Respiratory Rate 16 16 18 Blood Pressure 111/54 L 113/68 123/66 Pulse Oximetry 99 98 98 07/12/18 11:49 07/12/18 12:02 07/12/18 16:00 Temperature 98.2 F 98.1 F Pulse Rate 73 60 73 Respiratory Rate 18 18 Blood Pressure 109/53 L 107/54 L Pulse Oximetry 98 98 07/12/18 19:31 Temperature 99.5 F Pulse Rate 93 H Respiratory Rate 14 Blood Pressure 125/63 Pulse Oximetry 98 Intake & Output 07/12/18 07/12/18 07/13/18 06:59 18:59 06:59 Other: # Voids 2 Date of Last Bowel Movement 07/08/18 GENERAL: MBMN AND SKIN: Warm and dry. HEAD: Normocephalic. EYES: No scleral icterus. No injection or drainage. NECK: Supple, trachea midline. No JVD or lymphadenopathy. CARDIOVASCULAR: Regular rate and rhythm without murmurs, gallops, or rubs. RESPIRATORY: Breath sounds equal bilaterally. No accessory muscle use. GASTROINTESTINAL: Abdomen soft, non-tender, nondistended. MUSCULOSKELETAL: No cyanosis, or edema. BACK: Nontender without obvious deformity. No CVA tenderness. Assessment and Plan - Plan IMPRESSION: 1. Shortness of breath, possible from her underlying obstructive restrictive lung disease. 2. History of polycythemia vera. 3. Hypertension. 4. Chronic back pain. PLAN: Cardiac olvera underway Will need complete PFT with Lung vol and diffusion as out pt Stable on RA
[2018-07-13 07:48] VITALS: RESP 16
[2018-07-13] MEDS: Lisinopril 20 MG Tablet PO SCH (09:10)
[2018-07-13] MEDS: amLODIPine 5 MG Tablet PO SCH (09:10)
[2018-07-13] MEDS: Escitalopram 10 MG Tablet PO SCH (09:10)
[2018-07-13] MEDS: Gabapentin 300 MG Capsule PO SCH (09:10)
[2018-07-13] MEDS: Enoxaparin Inj 30 MG/0.3 ML Syringe SQ SCH (09:10)
[2018-07-13] MEDS: hydroCHLOROthiazide 25 MG Tablet PO SCH (09:11)
[2018-07-13] MEDS: Hydroxyurea 500 MG Capsule PO SCH (09:12)
[2018-07-13 11:45] VITALS: BP 107/55; PULSE 76; TEMP 98.4; O2SAT 98
== END 2018-07-13 12:17 ==
LOC: NEDA 08:22 → NEPC 08:22 → NEPFCDU 18:10
PROVIDERS: ADMIT Hospitalist; ATTEND Hospitalist
DX: Z79.82 Long term (current) use of aspirin; K58.9 Irritable bowel syndrome, unspecified; F43.22 Adjustment disorder with anxiety; G47.33 Obstructive sleep apnea (adult) (pediatric); R07.89 Other chest pain; I10 Essential (primary) hypertension; D45 Polycythemia vera; Z79.899 Other long term (current) drug therapy; E04.1 Nontoxic single thyroid nodule; G89.29 Other chronic pain; J98.4 Other disorders of lung; E78.5 Hyperlipidemia, unspecified; K21.9 Gastro-esophageal reflux disease without esophagitis; R06.02 Shortness of breath